=== PATIENT | female | born 1995 | race Caucasian/White ===

== ENCOUNTER 2020-07-24 05:29 | Inpatient (IN) | payer BC, SELFPAY ==
[2020-07-24] VITALS (39 sets, daily range): BP systolic 112–137; BP diastolic 52–80; PULSE 86–114; RESP 24–111; TEMP 36.8–39.6; O2SAT 75–99; BMI 37.2; BMI 36.2
--- NOTE | 2020-07-24 05:32 | EKG12_ITS ---
Test Reason : SOB Blood Pressure : / mmHG Vent. Rate : 112 BPM Atrial Rate : 112 BPM P-R Int : 150 ms QRS Dur : 076 ms QT Int : 320 ms P-R-T Axes : 018 008 032 degrees QTc Int : 436 ms Sinus tachycardia Nonspecific T wave abnormality Abnormal ECG Confirmed by WILLIAM LIAO MD ([id number]), digital editor MARIAN MCMILLAN ([id number]) on 07/28/2020 12:32:47 PM Referred By: KAILEE Confirmed By:WILLIAM LIAO MD
--- NOTE | 2020-07-24 05:34 | ED.VIS.DYS ---
HPI History of Present Illness Chief Complaint: Shortness of Breath Informant: patient and EMS Narrative Narrative: Patient presents with shortness of breath. This is been ongoing for 5 days. She tested positive for [facility] ago. She states that she has been getting worse over the past 5 days. She admits to a cough and shortness of breath. She denies any chest pain. No leg swelling. She denies any history of any lung issues in the past. She does not have an inhaler at home that she has been using. She denies any significant fevers. She is a non-smoker. EMS was called ramin and upon arrival at her residence they noted that she was in the low 80% region on room air. They administered supplemental oxygen and transferred her here. [facility] Medical History (Updated 07/24/20 @ 06:[address] Shaheed Monteiro MD) Anxiety Anxiety Home Medications alprazolam [Xanax] 0.25 mg PO DAILY 07/24/20 [History Last Taken Unknown] ondansetron 4 mg PO Q6H PRN 07/24/20 [History Last Taken Unknown] sertraline [Zoloft] 25 mg PO DAILY 07/24/20 [History Last Taken Unknown] Allergy/AdvReac Type Severity Reaction Status Date / Time amoxicillin AdvReac Upset Verified 07/24/20 05:51 Stomach no significant family history Social History Smoking Status: Never smoker ROS ROS ED Constitutional Constitutional ED: Denies chills or fever(s) Eyes Eyes: Denies blurry vision, change in vision or diplopia ENT ENT ED: Denies ear pain, rhinorrhea or sore throat Cardiovascular Cardiovascular: Denies chest pain or palpitations Respiratory/Chest Respiratory/Chest: Reports cough and dyspnea Gastrointestinal Gastrointestinal: Denies abdominal pain, diarrhea, nausea or vomiting Genitourinary Genitourinary ED: Denies dysuria, hematuria or urinary frequency Musculoskeletal Musculoskeletal: Denies back pain or neck pain Integumentary Denies change in pigmentation or rash Neurologic Neurologic: Denies headache(s), numbness or weakness Psychiatric Psychiatric: Denies anxiety or depression Endocrine Endocrinology: Denies polydipsia or polyuria EXAM Physical Exam Const Vital Signs: 07/24/20 05:31 07/24/20 05:35 07/24/20 05:46 Temperature 101.8 F H Temperature Source Oral Pulse Rate 114 H Respiratory Rate 27 H Respiratory Effort Short of Breath Respiratory Depth Normal Respiratory Pattern Tachypnea Blood Pressure 131/69 H Blood Pressure Mean 89 Pulse Ox 75 97 Oxygen Delivery Method Room Air Nasal Cannula Oxygen Flow Rate (L/min) 4 07/24/20 05:50 07/24/20 05:52 07/24/20 05:58 Temperature 101.8 F H 102.9 F H Temperature Source Oral Oral Pulse Rate 114 H Respiratory Rate 25 H Respiratory Effort Respiratory Depth Respiratory Pattern Blood Pressure 123/69 H Blood Pressure Mean 87 Pulse Ox 96 94 Oxygen Delivery Method Nasal Cannula Nasal Cannula Oxygen Flow Rate (L/min) 4 4 07/24/20 06:40 Temperature 103.3 F H Temperature Source Oral Pulse Rate Respiratory Rate 111 H Respiratory Effort Respiratory Depth Respiratory Pattern Blood Pressure 120/73 Blood Pressure Mean 88 Pulse Ox 92 Oxygen Delivery Method Nasal Cannula Oxygen Flow Rate (L/min) 4 Positive well nourished and well developed Constitutional Narrative: Mildly dyspneic General Appearance ED: well developed HEENT Reports moist mucous membranes normocephalic and atraumatic; Negative for tenderness Eyes PERRL and EOMs intact bilaterally Neck supple and no JVD Chest Wall Chest: Negative for tenderness Resp normal respiratory effort Resp Narrative: Rhonchi in the bases Effort and Inspection: Negative for respiratory distress Auscultation: rhonchi and diminished lung sounds Cardio regular rate and no murmurs Rate: tachycardic Rhythm: regular rhythm GI soft to palpation, non-tender and non-distended Palpation: soft Back/Spine no CVA tenderness and no thoracic nor lumbar tenderness Cervical Spine: Negative for cervical spine tenderness Extremity normal to inspection and full ROM General Extremety ED: Negative for edema or tenderness General Extremity: Negative for edema Neuro oriented x3, CN's II-XII intact bilaterally and no sensory deficits noted Sensorium / Orientation: awake and alert Motor Exam: strength 5/5 throughout Psych mental status grossly normal Skin no rashes or lesions noted Lesions: no lesions Rashes: no rashes MDM MDM MDM Narrative Medical decision making narrative: The patient was placed on supplemental oxygen. Her white blood cell count of 6.9. Electrolytes show potassium 3.4. Glucose is 125. Her D-dimer is 4.91. Lactate was 2.1. Chest x-ray shows bilateral infiltrates consistent with Covid. CTA of the chest is currently pending but upon my review I see no large pulmonary emboli in the proximal vessels. She does have lung changes consistent with Covid. She was given Decadron IV. She is having oxygen saturations around 92 to 93% on nasal cannula oxygen. Tylenol was given for her fever. I discussed with the hospitalist, Dr. New. Patient will be admitted to the ICU due to her diagnoses. Lab Data Attestation: I reviewed the patient's lab results. Labs: Laboratory Results - last 24 hr 07/24/20 07/24/20 07/24/20 05:50 05:50 05:50 WBC 6.9 RBC 5.02 Hgb 14.1 Hct 43.3 MCV 86.3 MCH 28.1 MCHC 32.6 RDW Std Deviation 45.2 H RDW Coeff of Brandon 14.2 Plt Count 200 MPV 9.7 Immature Gran % (Auto) 0.400 Neut % (Auto) 77.5 H Lymph % (Auto) 19.6 Ballard % (Auto) 2.4 Eos % (Auto) 0.0 Baso % (Auto) 0.1 Absolute Neuts (auto) 5.4 Absolute Lymphs (auto) 1.36 Nucleated RBC % 0 PT 12.1 INR 1.0 APTT 37.4 H D-Dimer Quant (PE/DVT) 4.91 H* Sodium 139 Potassium 3.4 L Chloride 105 Carbon Dioxide 28.0 Anion Gap 6 BUN 9 Creatinine 0.91 Estim Creat Clear Calc 97.82 Est GFR (MDRD) Af Amer 98 Est GFR (MDRD) Non-Af 81 BUN/Creatinine Ratio 9.9 L Glucose 125 H Lactic Acid Calcium 8.3 L Total Bilirubin 0.60 AST 72 H ALT 48 Alkaline Phosphatase 95 Total Protein 7.4 Albumin 3.1 L Globulin 4.3 H Albumin/Globulin Ratio 0.7 L 07/24/20 05:50 WBC RBC Hgb Hct MCV MCH MCHC RDW Std Deviation RDW Coeff of Brandon Plt Count MPV Immature Gran % (Auto) Neut % (Auto) Lymph % (Auto) Ballard % (Auto) Eos % (Auto) Baso % (Auto) Absolute Neuts (auto) Absolute Lymphs (auto) Nucleated RBC % PT INR APTT D-Dimer Quant (PE/DVT) Sodium Potassium Chloride Carbon Dioxide Anion Gap BUN Creatinine Estim Creat Clear Calc Est GFR (MDRD) Af Amer Est GFR (MDRD) Non-Af BUN/Creatinine Ratio Glucose Lactic Acid 2.1 H* Calcium Total Bilirubin AST ALT Alkaline Phosphatase Total Protein Albumin Globulin Albumin/Globulin Ratio Radiography Diagnostic Testing: Radiology Impression Chest X-Ray 07/24/20 06:03 IMPRESSION: Findings suspicious for multifocal pneumonia highly suggestive of Covid pneumonia. Electronically Signed: Eva Bourgeois MD at 6:22 EDT Tel , Service support , Critical Care Time Critical Care Time: Yes Critical care time (excluding procedures): 30-74 minutes, Discussing w/Patient &/or Family/Newspaper Photographer, Discussing w/Consultants and Performing Direct Patient Care at Bedside Discharge Plan Triage Chief Complaint: Shortness of Breath ED Provider: Shaheed Monteiro Dx/Rx/DC Orders Clinical Impression: COVID-19, Hypoxia, Severe sepsis Prescriptions: No Action alprazolam [Xanax] 0.25 mg Tablet 0.25 mg PO DAILY RF: 0 sertraline [Zoloft] 25 mg Tablet 25 mg PO DAILY RF: 0 ondansetron 4 mg Tablet,Disintegrating 4 mg PO Q6H PRN (Reason: Nausea) RF: 0 Primary Care Provider: Care Physician,No Primary Referrals: Care Physician,No Primary [Primary Care Provider] - Disposition Disposition: Acute Care [facility]
--- NOTE | 2020-07-24 05:38 | ED.RN ---
NO OLD EKGS IN MUSE
[2020-07-24] MEDS: dexAMETHasone 10 MG/ML Vial 6 MG IV (05:55)
[2020-07-24 06:00] LABS: Absolute Lymphocyte Count 1.36 X10^3/uL (0.83-4.51); Absolute Neutrophil Count 5.4 X10^3/uL (2.0-7.7); Basophil# 0.01 X10^3/uL; Basophil% 0.1 % (0-1); Hematocrit 43.3 % (37-47); Hemoglobin 14.1 g/dL (12.0-15.0); Lymphocyte # 1.36 X10^3/ul (0.83-4.51); Lymphocyte % 19.6 % (19-41); Mean Corp Hgb Conc 32.6 g/dL (32-36); Mean Corpuscular Hgb 28.1 pg (27.0-32.0); Mean Corpuscular Volume 86.3 fL (81-99); Mean Platelet Vol. 9.7 fl (6.2-12.0); Monocyte# 0.17 X10^3/uL; Monocyte% 2.4 % (0-10); NRBC Flagged by Analyzer 0 % (0-5); Neutrophil # 5.37 X10^3/uL (2.7-7.7); Neutrophil % 77.5 % (47-70); Platelet Count 200 K/mm3 (150-450); RBC Distribution Width CV 14.2 % (11.6-14.6); RBC Distribution Width SD 45.2 fl (35.1-43.9); Red Blood Count 5.02 M/mm3 (4.2-5.4); White Blood Count 6.9 K/mm3 (4.4-11.0)
[2020-07-24] MEDS: Acetaminophen 500 MG Tablet 1000 MG PO (06:00)
--- NOTE | 2020-07-24 06:03 | RAD_ITS ---
STUDY: X-RAY CHEST REASON FOR EXAM: Female, 24 years old. Cough and sob, covid +, pt was having difficulties taking in deep inspiration for x-ray. TECHNIQUE: Single AP portable view x2 of the chest. COMPARISON: None. FINDINGS: There are multifocal patchy groundglass opacities with predominance in the left lung. There is no demonstrated pleural abnormality. Normal size heart. Normal mediastinum and joel. Normal visualized pulmonary arteries. Normal visualized aortic arch and descending thoracic aorta. Normal visualized thoracic spine. Normal visualized ribs, clavicles, and shoulders. There is no demonstrated abnormality of the visualized soft tissue structures of the upper abdomen. RAD/Chest 1 View (Portable) IMPRESSION: Findings suspicious for multifocal pneumonia highly suggestive of Covid pneumonia. Electronically Signed: Eva Bourgeois MD at 6:22 EDT Tel , Service support ,
[2020-07-24 06:13] LABS: Partial Thromboplast Time 37.4 Seconds (24.1-36.2)
[2020-07-24 06:17] LABS: ALB/GLOB Ratio 0.7 RATIO (0.9-2.4); AST(SGOT) 72 U/L (15-37); Alanine Aminotransfer ALT/SGPT 48 U/L (13-56); Albumin, Serum 3.1 g/dL (3.2-5.0); Alkaline Phosphatase 95 U/L (45-117); Anion Gap 6 (5-15); BUN 9 mg/dL (7-18); BUN/Creat Ratio 9.9 RATIO (10-20); Calcium,Total 8.3 mg/dL (8.5-10.1); Chloride 105 mmol/L (98-107); Creatinine, Serum 0.91 mg/dL (0.55-1.02); EST Glomerular Filtration Rate 81 mL/min (>60); Est Glom Filt Rate - Afr Amer 98 mL/min (>60); Estimated Creatinine Clearance 97.82 ml/min; Globulin 4.3 g/dL (2.2-4.2); Glucose 125 mg/dL (74-106); Potassium 3.4 mmol/L (3.5-5.1); Protein, Total 7.4 g/dL (6.4-8.2); Sodium Level 139 mmol/L (136-145)
[2020-07-24 06:30] LABS: Lactic Acid 2.1 mmol/L (0.4-1.9)
[2020-07-24 06:32] LABS: Prothrombin Time (Protime)PT. 12.1 SECONDS (11.7-14.9)
[2020-07-24 06:34] LABS: D-Dimer Quantitative (DVT/PE) 4.91 FEU/ug/m (0.27-0.49)
--- NOTE | 2020-07-24 06:34 | CT_ITS ---
STUDY: CTA CHEST REASON FOR EXAM: Female, 24 years old. elevated d dimer RADIATION DOSAGE (If Supplied By Facility): CTDIvol = ( 11.42 ) mGy, DLP = ( 386.35 ) mGycm TECHNIQUE: The examination was performed with the intravenous administration of IV 100mL Isovue-370. Post-processing of the angiographic images was performed, with multiplanar reformation and 3D reconstruction. Individualized dose optimization techniques were used for this CT. COMPARISON: July 24, 2020 chest x-ray FINDINGS: There is limited enhancement of the main pulmonary artery and right and left pulmonary arteries. There is limited enhancement of the bilateral peripheral pulmonary arteries. There are no large centrally located clots. There is a limited visualization of the pulmonary vessels to the multifocal infiltrates and artifact. Normal thoracic aorta and visualized great vessels. There is no demonstrated aortic dissection. There is borderline cardiac enlargement. There are a few reactive appearing mediastinal lymph nodes. Normal hilar regions. Normal visualized trachea and bronchi. The lungs are well expanded. There are multifocal areas of consolidation with predominance in the left upper lobe and left lower lobe right lower lobe. There are patches of consolidation groundglass opacity in the right upper lobe. Normal pleura. Normal chest wall structures. Normal osseous structures. There is [id number] splenomegaly. CT/CTA Chest W/WO Contrast IMPRESSION: No visualized pulmonary embolism. Multifocal pneumonia highly suspicious for Covid pneumonia. Mild to moderate splenomegaly. Electronically Signed: Eva Bourgeois MD at 7:12 EDT Tel , Service support ,
--- NOTE | 2020-07-24 06:46 | PCM.HP.STD ---
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 She denies any recent associated chest pain. Patient denies any recent Covid contacts. She denies any of her students having been ill. She reports having signed up for vaccine but has yet to get it but is still interested in doing so. Work-up in the ED included T 103.3, heart rate 2103.3, heart rate 114, BP 131/69, respiratory rate 27, initially 75% on room air with improvement to 97% on 4 L nasal cannula, CBC with WBC 6.9, hemoglobin 14.1, platelet 200 without marked shift, coags w/ PTT 37.4, D-dimer 4.91, CMP w/ K 3.4, glucose 125, LA 2.1, AST/ALT 72/48, CXR with multifocal PNA consistent with COVID PNA, CPTA no visualized pulmonary emboli with multifocal pneumonia suspicious for Covid pneumonia with concurrent mild to moderate splenomegaly, EKG w/ with ST without acute evidence of ischemia. In the ED patient administered decadron 6 mg IV x 1.6. [facility] Medical History (Updated 07/24/20 @ 14:[address] Odette New MD) Anxiety and depression Obesity (BMI 30-39.9) Home Medications alprazolam [Xanax] 0.25 mg PO DAILY 07/24/20 [History Last Taken Unknown] ondansetron 4 mg PO Q6H PRN 07/24/20 [History Last Taken Unknown] sertraline [Zoloft] 25 mg PO DAILY 07/24/20 [History Last Taken Unknown] Allergy/AdvReac Type Severity Reaction Status Date / Time amoxicillin AdvReac Upset Verified 07/24/20 05:51 Stomach Family History (Updated 07/24/20 @ 14:[address] Odette New MD) Mother No problems noted. Father No problems noted. other (Patient denies any marked maternal or paternal family history including heart disease, diabetes, cancer, strokes.) unable to obtain (Patient with a history of sinus surgery as well as left ankle surgery.) Social History (Updated 07/24/20 @ 14:[address] 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 ROS ROS Narrative Admission Review of Systems: CONSTITUTIONAL: No weight loss, + fever, chills, weakness or fatigue. HEENT: + Altered sense of taste and smell, sore throat, congestion. Eyes: No visual loss, blurred vision, double vision or yellow sclerae. Ears, Nose, Throat: No hearing loss. SKIN: No rash or itching, lesions, wounds. CARDIOVASCULAR: No chest pain, chest pressure or chest discomfort, palpitations, edema, orthopnea, syncopal events. RESPIRATORY: + shortness of breath, cough, No sputum, wheezing, hemoptysis. GASTROINTESTINAL: + anorexia, nausea, vomiting, diarrhea, abdominal pain, No melena, BRBPR. GENITOURINARY: No dysuria, frequency, urgency or retention. NEUROLOGICAL:+ headache, No dizziness, syncope, paralysis, ataxia, numbness or tingling in the extremities, focal weakness, change in bowel or bladder control, seizure. MUSCULOSKELETAL: + muscle, back pain, joint pain or stiffness. HEMATOLOGIC: No anemia, bleeding or bruising. LYMPHATICS: No enlarged nodes. No history of splenectomy. PSYCHIATRIC: + history of depression or anxiety. ENDOCRINOLOGIC: No reports of sweating, cold or heat intolerance. No polyuria or polydipsia. ALLERGIES: No history of asthma, hives, eczema or rhinitis. Vital Signs Vital Signs Vital Signs: 07/24/20 05:31 07/24/20 05:35 07/24/20 05:46 Temperature 101.8 F H Temperature Source Oral Pulse Rate 114 H Respiratory Rate 27 H Respiratory Effort Short of Breath Respiratory Depth Normal Respiratory Pattern Tachypnea Blood Pressure 131/69 H Blood Pressure Mean 89 Pulse Ox 75 97 Oxygen Delivery Method Room Air Nasal Cannula Oxygen Flow Rate (L/min) 4 07/24/20 05:50 07/24/20 05:52 07/24/20 05:58 Temperature 101.8 F H 102.9 F H Temperature Source Oral Oral Pulse Rate 114 H Respiratory Rate 25 H Respiratory Effort Respiratory Depth Respiratory Pattern Blood Pressure 123/69 H Blood Pressure Mean 87 Pulse Ox 96 94 Oxygen Delivery Method Nasal Cannula Nasal Cannula Oxygen Flow Rate (L/min) 4 4 07/24/20 06:40 Temperature 103.3 F H Temperature Source Oral Pulse Rate Respiratory Rate 111 H Respiratory Effort Respiratory Depth Respiratory Pattern Blood Pressure 120/73 Blood Pressure Mean 88 Pulse Ox 92 Oxygen Delivery Method Nasal Cannula Oxygen Flow Rate (L/min) 4 Physical Exam Narrative Physical Examination: General: awake, alert, oriented x 3 and cooperative, seated upright in the ED bed, fatigued and ill-appearing, increased work of breathing accessory muscle usage noted. Skin: normal color, turgor, no icterus, cyanosis. HEENT: AT/NC, EOMI, PERRLA, dry MM, no carotid bruits or JVD noted. Lungs: Diffusely diminished, increased work of breathing and accessory muscle usage noted, no rales, ronchi or wheezing. Heart: Tachycardic with regular rhythm; no gallop, rub audible. Abdomen: soft, obese, NTTP but noted mild generalized abdominal discomfort, ND, mildly hyperactive BS, no HSM. Extremities: no cyanosis, clubbing, or edema. Neurological: patient awake, alert, oriented as noted; cognitive function intact; pupils equally reactive to light and accomodation; cranial nerves II-XII grossly normal, moving all 4 extremities, no focal deficits, strength severely globally decreased secondary to acute presentation. Psychiatric: affect appears fatigued, ill appearing, evidence respiratory distress, no acute evidence of depressive or anxiety feelings. Lab / Micro Data Result Diagrams: 07/24/20 05:50 07/24/20 05:50 Labs: Laboratory Results - last 24 hr 07/24/20 07/24/20 07/24/20 05:50 05:50 05:50 WBC 6.9 RBC 5.02 Hgb 14.1 Hct 43.3 MCV 86.3 MCH 28.1 MCHC 32.6 RDW Std Deviation 45.2 H RDW Coeff of Brandon 14.2 Plt Count 200 MPV 9.7 Immature Gran % (Auto) 0.400 Neut % (Auto) 77.5 H Lymph % (Auto) 19.6 Dillon % (Auto) 2.4 Eos % (Auto) 0.0 Baso % (Auto) 0.1 Absolute Neuts (auto) 5.4 Absolute Lymphs (auto) 1.36 Nucleated RBC % 0 PT 12.1 INR 1.0 APTT 37.4 H D-Dimer Quant (PE/DVT) 4.91 H* Sodium 139 Potassium 3.4 L Chloride 105 Carbon Dioxide 28.0 Anion Gap 6 BUN 9 Creatinine 0.91 Estim Creat Clear Calc 97.82 Est GFR (MDRD) Af Amer 98 Est GFR (MDRD) Non-Af 81 BUN/Creatinine Ratio 9.9 L Glucose 125 H Lactic Acid Calcium 8.3 L Total Bilirubin 0.60 AST 72 H ALT 48 Alkaline Phosphatase 95 Total Protein 7.4 Albumin 3.1 L Globulin 4.3 H Albumin/Globulin Ratio 0.7 L 07/24/20 05:50 WBC RBC Hgb Hct MCV MCH MCHC RDW Std Deviation RDW Coeff of Brandon Plt Count MPV Immature Gran % (Auto) Neut % (Auto) Lymph % (Auto) Dillon % (Auto) Eos % (Auto) Baso % (Auto) Absolute Neuts (auto) Absolute Lymphs (auto) Nucleated RBC % PT INR APTT D-Dimer Quant (PE/DVT) Sodium Potassium Chloride Carbon Dioxide Anion Gap BUN Creatinine Estim Creat Clear Calc Est GFR (MDRD) Af Amer Est GFR (MDRD) Non-Af BUN/Creatinine Ratio Glucose Lactic Acid 2.1 H* Calcium Total Bilirubin AST ALT Alkaline Phosphatase Total Protein Albumin Globulin Albumin/Globulin Ratio Radiology Impression Chest X-Ray 07/24/20 06:03 IMPRESSION: Findings suspicious for multifocal pneumonia highly suggestive of Covid pneumonia. 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 1. Acute Severe Sepsis secondary to Acute Hypoxic Respiratory Failure secondary to Acute Bilateral Pneumonia secondary to Acute Viral Syndrome, COVID-19: Will admit to the ICU given severe sepsis status, maintain on COVID precautions, will maintain on oxygen with wean as tolerated to room air, PRN albuterol, HOB, IS parameters w/ pending sputum cultures, respiratory viral panel and urine antigens, will obtain procalcitonin, CRP, CPK, Ferritin, LDH, trop and BNP, continue supportive care including q 2 hour turning including prone given no prone bed availability and judicious hydration, closely monitor for worsening status for ARDS and multiorgan failure, will consult Infectious disease, will initiate and continue IV decadron x 10 doses, given presentation will also initiate IV remdesivir but defer to discretion of Infectious disease. Pulmonary/CC also consulted given ICU status admission per facility protocol. T+S requested. 2. Incidentally noted splenomegaly: CT with noted evidence splenomegaly, likely related with #1, may need to implement precautions at her discharge although no contact sports history. 3. Hypokalemia: Admission K+ 3.4, magnesium level obtained and noted to be 2.1, supplementation given, repeat level in AM. 4. Hyperglycemia: Admission glucose 125, possibly stress response, will continue to monitor and if remains elevated will obtain hemoglobin A1c. 5. Elevated LFTs: Likely secondary to #1, admission AST/ALT 72/48, will repeat CMP in AM. 6. Anxiety and Depression: Continue home sertraline and xanax regimen cautiously. 7. DVT Prophylaxis: SCDs, lovenox. Visit Charges Inpatient E&M: 96209 Init Hosp L3
[2020-07-24 07:28] LABS: BNP,B-Type NATRIURETIC PEPTIDE < 2.0 pg/mL (0-100)
[2020-07-24 07:30] LABS: Alkaline Phosphatase 96 U/L (45-117); Ferritin 304 ng/mL (8-252); LDH 398 U/L (84-246); Magnesium 2.1 mg/dL (1.6-2.6)
[2020-07-24 07:50] LABS: Procalcitonin 0.12 ng/mL (0.00-0.09)
[2020-07-24] MEDS: Sertraline 50 MG Tablet 25 MG PO (08:25)
[2020-07-24] MEDS: Enoxaparin 30 MG/0.3 ML Syringe SC ×2 (08:25→20:11)
[2020-07-24] MEDS: Famotidine 20 MG Tablet PO ×2 (08:25→20:11)
[2020-07-24 09:59] LABS: Reflex Lactate? Y
--- NOTE | 2020-07-24 10:24 | CASEMGMT ---
BROOKS VILLAR assessment: Phone interview with patient for initial transition planning/care coordination assessment. BROOKS VILLAR introduced self and role at [facility], pt voices understanding and consents to assessment. Pt is A/Ox4 and answers all questions appropriately. Pt states tested COVID + on 07/20/20 at [facility]. Care providers, pharmacy, and demographics verified. Presentation: COVID +, SOB Admitting dx: Severe sepsis, COVID pna, hypoxia PCP: Pt does not have PCP and declines list at this time. Specialists: Pt states no current specialists. Preferred Pharmacy: [facility] Insurance: [place] Living Will/HPOA: Pt does not have LW/HPOA and declines info. LNOK: Zahida Calderon, mother Living Arrangements: Pt states lives alone in apartment and states no concerns at home. Pt is independent with ADL's. Transportation: Pt states drives self and states no transportation concerns. DME/HHC: Pt states no current DME or need for any. Pt states no hx of HHC/SNF. Pt states no concerns with going home at time of discharge. 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 Pt states does not smoke cigarettes but does occasionally drink ETOH. Pt states no further concerns/needs. Pt states no concerns with quarantining and getting groceries/meds once discharged home. CM to follow for any further discharge planning/needs. Advised pt to ask for CM if any further questions/concerns/needs arise, voices understanding. Pt Goal: Home Plan[place]
[2020-07-24] MEDS: 0.9% Normal Saline 1,000 ML 125 ML IV (10:36)
[2020-07-24] MEDS: Potassium Chloride Oral Tablet 20 MEQ 40 MEQ PO (10:36)
[2020-07-24 10:49] LABS: Lactic Acid 1.9 mmol/L (0.4-1.9)
[2020-07-24] MEDS: Albuterol Sulfate 8 gm Inhaler (60 puffs) INHALATION ×2 (13:11→18:21)
--- NOTE | 2020-07-24 14:07 | CON.PCM.CC_ITS ---
Assessment & Plan Assessment/Plan (1) Acute respiratory failure with hypoxia: (2) COVID-19: PLAN: RECOMMENDATIONS: 1. Wean supplemental oxygen to maintain saturations at or above 90%. 2. Continue remdesivir. Monitor liver and renal function accordingly. 3. Continue Decadron to complete 10-day treatment course. 4. Continue twice daily Lovenox. 5. Continue baseline anxiolytics. 6. Encourage incentive spirometer use and mobilize patient as tolerated. IMPRESSIONS: 1. Acute hypoxemic respiratory failure secondary to COVID-19 pneumonia The patient was admitted to the hospital with an approximate 6-day course of Covid symptoms having tested positive at a local [facility] pharmacy. CTA chest revealed significant bilateral consolidative and groundglass changes without evidence for PE. The patient was subsequently placed on remdesivir and Decadr on. We will continue to monitor liver and renal function accordingly. Continue to wean oxygen to maintain saturations at or above 90%. Continue Lovenox twice daily as ordered. 2. Hypokalemia Electrolyte repletion as ordered. Recheck levels in the morning. 3. Anxiety/depression Complicates care, management, recovery and prognosis. Continue home medications as indicated. This note was generated with [employer] dictation software. It may contain incorrect words, spelling, and punctuation that were not noted in checking the note before signing. HPI Consult Data Date of Consult: 07/25/20 HPI Narrative Reason for Consultation: Acute hypoxemic respiratory failure secondary to COVID- 19 pneumonia HPI Narrative: The patient is a 24-year-old female, with a history as outlined below, who presented to the emergency department on July 24 with complaints of generalized malaise, fatigue, cough and shortness of breath. Her symptoms have been present now for approximately 5 to 6 days. The patient has yet to be vaccinated for coronavirus. She did recently test positive for Covid through [facility] pharmacy. On presentation to the emergency department, the patient was noted to be febrile, tachycardic and tachypneic. She was additionally noted to be hypoxemic, requiring 4 L/min of oxygen. Laboratory evaluation revealed a normal white blood cell count. D-dimer was elevated at 4.9. Potassium was low at 3.4. Lactate was elevated to 2.1. Procalcitonin was noted to be 0.12. CTA chest showed no evidence for pulmonary embolism. Bilateral airspace consolidation and patchy groundglass infiltrates were noted. The patient was started on remdesivir and Decadron. She was subsequently admitted to the medical intensive care unit for further management. [facility] Medical History Anxiety and depression Obesity (BMI 30-39.9) Home Medications alprazolam [Xanax] 0.25 mg PO DAILY 07/24/20 [History Last Taken Unknown] ondansetron 4 mg PO Q6H PRN 07/24/20 [History Last Taken Unknown] sertraline [Zoloft] 25 mg PO DAILY 07/24/20 [History Last Taken Unknown] Allergy/AdvReac Type Severity Reaction Status Date / Time amoxicillin AdvReac Upset Verified 07/24/20 05:51 Stomach Family History (Updated 07/24/20 @ 14:[address] Odette New MD) Mother No problems noted. Father No problems noted. Social History (Updated 07/24/20 @ 14:[address] 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 ROS Constitutional Constitutional: Reports chills, fatigue, fever(s), headache(s) and malaise Eyes Eyes: Denies blurry vision or change in vision ENT HEENT: Reports headache(s); Denies dizziness or dysphagia Cardiovascular Cardiovascular: Reports dyspnea; Denies chest pain or dizziness Respiratory/Chest Respiratory/Chest: Reports cough and dyspnea; Denies chest tightness Gastrointestinal Gastrointestinal: Denies abdominal pain Genitourinary Genitourinary: Denies difficulty urinating or dysuria Musculoskeletal Musculoskeletal: Denies arthralgias or back pain Integumentary Integumentary: Denies lesions, rash or skin ulcer Neurologic Neurologic: Denies abnormal gait Psychiatric Psychiatric: Reports anxiety Endocrine Endocrinology: Reports fatigue; Denies polydipsia or polyuria Hematologic/Lymphatic Hematologic/Lymphatic: Denies easy bleeding or easy bruising Physical Exam Const alert and oriented x3 General Appearance: cooperative and well developed HEENT normocephalic, head/scalp atraumatic and moist oral mucous membranes Eyes PERRL and EOMs intact bilaterally Chest inspection of chest normal Resp Effort and Inspection: tachypneic Auscultation: diminished lung sounds; Negative for rales, rhonchi or wheezes Cardio regular rate and regular rhythm GI normal to inspection, nondistended, normoactive bowel sounds Extremity no clubbing, cyanosis or edema Skin no rashes or lesions noted Neuro oriented x3, CN's II-XII intact bilaterally, moves all extremities and no focal motor deficits Psych cooperative and affect normal Appearance: well kempt Lab / Micro Data Result Diagrams: 07/25/20 03:40 07/25/20 03:40 Labs: Laboratory Results - last 24 hr 07/24/20 07/24/20 07/24/20 05:50 05:50 05:50 WBC 6.9 RBC 5.02 Hgb 14.1 Hct 43.3 MCV 86.3 MCH 28.1 MCHC 32.6 RDW Std Deviation 45.2 H RDW Coeff of Brandon 14.2 Plt Count 200 MPV 9.7 Immature Gran % (Auto) 0.400 Neut % (Auto) 77.5 H Lymph % (Auto) 19.6 [facility] % (Auto) 2.4 Eos % (Auto) 0.0 Baso % (Auto) 0.1 Absolute Neuts (auto) 5.4 Absolute Lymphs (auto) 1.36 Nucleated RBC % 0 PT 12.1 INR 1.0 APTT 37.4 H D-Dimer Quant (PE/DVT) 4.91 H* Sodium 139 Potassium 3.4 L Chloride 105 Carbon Dioxide 28.0 Anion Gap 6 BUN 9 Creatinine 0.91 Estim Creat Clear Calc 97.82 Est GFR (MDRD) Af Amer 98 Est GFR (MDRD) Non-Af 81 BUN/Creatinine Ratio 9.9 L Glucose 125 H Lactic Acid Calcium 8.3 L Magnesium Ferritin Total Bilirubin 0.60 AST 72 H ALT 48 Alkaline Phosphatase 95 Lactate Dehydrogenase Troponin I C-React Prot Ext Range B-Natriuretic Peptide Total Protein 7.4 Albumin 3.1 L Globulin 4.3 H Albumin/Globulin Ratio 0.7 L Procalcitonin 07/24/20 07/24/20 07/24/20 05:50 05:50 05:50 WBC RBC Hgb Hct MCV MCH MCHC RDW Std Deviation RDW Coeff of [place] Plt Count MPV Immature Gran % (Auto) Neut % (Auto) Lymph % (Auto) [facility] % (Auto) Eos % (Auto) Baso % (Auto) Absolute Neuts (auto) Absolute Lymphs (auto) Nucleated RBC % PT INR APTT D-Dimer Quant (PE/DVT) Sodium Potassium Chloride Carbon Dioxide Anion Gap BUN Creatinine Estim Creat Clear Calc Est GFR (MDRD) Af Amer Est GFR (MDRD) Non-Af BUN/Creatinine Ratio Glucose Lactic Acid 2.1 H* Calcium Magnesium 2.1 Ferritin 304 H Total Bilirubin AST ALT Alkaline Phosphatase 96 Lactate Dehydrogenase 398 H Troponin I < 0.015 C-React Prot Ext Range 87.10 H B-Natriuretic Peptide < 2.0 Total Protein Albumin Globulin Albumin/Globulin Ratio Procalcitonin 07/24/20 07/24/20 05:50 10:10 WBC RBC Hgb Hct MCV MCH MCHC RDW Std Deviation RDW Coeff of [place] Plt Count MPV Immature Gran % (Auto) Neut % (Auto) Lymph % (Auto) [place] % (Auto) Eos % (Auto) Baso % (Auto) Absolute Neuts (auto) Absolute Lymphs (auto) Nucleated RBC % PT INR APTT D-Dimer Quant (PE/DVT) Sodium Potassium Chloride Carbon Dioxide Anion Gap BUN Creatinine Estim Creat Clear Calc Est GFR (MDRD) Af Amer Est GFR (MDRD) Non-Af BUN/Creatinine Ratio Glucose Lactic Acid 1.9 Calcium Magnesium Ferritin Total Bilirubin AST ALT Alkaline Phosphatase Lactate Dehydrogenase Troponin I C-React Prot Ext Range B-Natriuretic Peptide Total Protein Albumin Globulin Albumin/Globulin Ratio Procalcitonin 0.12 H Micro: Microbiology 07/24/20 07:55 Respiratory Panel (PCR) - Final Mucosa - Nose Radiology Impression Chest X-Ray 07/24/20 06:03 IMPRESSION: Findings suspicious for multifocal pneumonia highly suggestive of Covid pneumonia. Electronically Signed: Eva Bourgeois MD at 6:22 EDT Tel , Service support , Chest CTA 07/24/20 06:34 IMPRESSION: No visualized pulmonary embolism. Multifocal pneumonia highly suspicious for Covid pneumonia. Mild to moderate splenomegaly. Electronically Signed: Eva Bourgeois MD at 7:12 EDT Tel , Service support , Charges/Coding Visit Charges Inpatient E&M: 10329 Init Hosp L3
[2020-07-24] MEDS: Acetaminophen 325 MG Tablet 650 MG PO ×2 (15:48→20:11)
[2020-07-24] MEDS: guaiFENesin 10 ML UDC (200MG/10ML) PO ×2 (15:48→20:14)
[2020-07-24] MEDS: INHALER, ASSIST DEVICES 1 EACH SPACER INHALATION (15:51)
--- NOTE | 2020-07-24 18:49 | NURSING ---
up to bathroom and back to bed- spo2 of 80% is once pt was back in bed. in 5 minutes of recovery time nasal cannula up to 7L and spo2 89%.
--- NOTE | 2020-07-24 18:56 | NURSING ---
high flow oxygen tubing applied. increased to 8L nasal cannula and encouraged/educated on prone/stomach positioning while laying in bed. pt nods head and verbalizes understanding, continues to lay on on her back with hob elevated. direct instruction and cueing/guidance for positioning change.
--- NOTE | 2020-07-24 19:21 | PCM.CONS.GEN ---
Assessment & Plan Assessment/Plan (1) COVID-19: PLAN: covid with hypoxia - sx started 07/19, not previously vaccinated. On dex, changed to po. Cont remdesivir. On lovenox 30mg bid. D-dimer elevated, CT showed no PE. Quarantine for 20 days until 08/08. Recommend covid shot once she is out of quarantine. Will follow, thank you (2) Acute respiratory failure with hypoxia: HPI Consult Data Date of Consult: 07/24/20 HPI Narrative HPI Narrative: SHANA MARQUEZ, is a 24 F who presented with sx starting 07/19 with progressive headache, fever, chills, sore throat, change in taste/smell, cough, SOB, chest soreness, n/v/d. No myalgias. Lives alone, no sick contacts. Has not gotten covid shot yet. Came to ED, hypoxic, admitted on dex and remdesivir. Not feeling much better yet. Full ROS performed and neg except as noted above. [facility] Medical History Anxiety and depression Obesity (BMI 30-39.9) Home Medications alprazolam [Xanax] 0.25 mg PO DAILY 07/24/20 [History Last Taken Unknown] ondansetron 4 mg PO Q6H PRN 07/24/20 [History Last Taken Unknown] sertraline [Zoloft] 25 mg PO DAILY 07/24/20 [History Last Taken Unknown] Allergy/AdvReac Type Severity Reaction Status Date / Time amoxicillin AdvReac Upset Verified 07/24/20 05:51 Stomach Family History (Updated 07/24/20 @ 14:[address] Odette New MD) Mother No problems noted. Father No problems noted. Social History (Updated 07/24/20 @ 14:[address] 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 Physical Exam Const alert, oriented x3 and no apparent distress General Appearance: cooperative HEENT normocephalic and head/scalp atraumatic Eyes PERRL and EOMs intact bilaterally Neck supple and No nodes Resp Auscultation: diminished lung sounds Cardio regular rate and regular rhythm GI normal to inspection, nondistended, normoactive bowel sounds Extremity no clubbing, cyanosis or edema Skin no rashes or lesions noted Neuro CN's II-XII intact bilaterally Lab / Micro Data Result Diagrams: 07/24/20 05:50 07/24/20 05:50 Labs: Laboratory Results - last 24 hr 07/24/20 07/24/20 07/24/20 05:50 05:50 05:50 WBC 6.9 RBC 5.02 Hgb 14.1 Hct 43.3 MCV 86.3 MCH 28.1 MCHC 32.6 RDW Std Deviation 45.2 H RDW Coeff of Brandon 14.2 Plt Count 200 MPV 9.7 Immature Gran % (Auto) 0.400 Neut % (Auto) 77.5 H Lymph % (Auto) 19.6 Terry % (Auto) 2.4 Eos % (Auto) 0.0 Baso % (Auto) 0.1 Absolute Neuts (auto) 5.4 Absolute Lymphs (auto) 1.36 Nucleated RBC % 0 PT 12.1 INR 1.0 APTT 37.4 H D-Dimer Quant (PE/DVT) 4.91 H* Sodium 139 Potassium 3.4 L Chloride 105 Carbon Dioxide 28.0 Anion Gap 6 BUN 9 Creatinine 0.91 Estim Creat Clear Calc 97.82 Est GFR (MDRD) Af Amer 98 Est GFR (MDRD) Non-Af 81 BUN/Creatinine Ratio 9.9 L Glucose 125 H Lactic Acid Calcium 8.3 L Magnesium Ferritin Total Bilirubin 0.60 AST 72 H ALT 48 Alkaline Phosphatase 95 Lactate Dehydrogenase Troponin I C-React Prot Ext Range B-Natriuretic Peptide Total Protein 7.4 Albumin 3.1 L Globulin 4.3 H Albumin/Globulin Ratio 0.7 L Procalcitonin 07/24/20 07/24/20 07/24/20 05:50 05:50 05:50 WBC RBC Hgb Hct MCV MCH MCHC RDW Std Deviation RDW Coeff of Brandon Plt Count MPV Immature Gran % (Auto) Neut % (Auto) Lymph % (Auto) Terry % (Auto) Eos % (Auto) Baso % (Auto) Absolute Neuts (auto) Absolute Lymphs (auto) Nucleated RBC % PT INR APTT D-Dimer Quant (PE/DVT) Sodium Potassium Chloride Carbon Dioxide Anion Gap BUN Creatinine Estim Creat Clear Calc Est GFR (MDRD) Af Amer Est GFR (MDRD) Non-Af BUN/Creatinine Ratio Glucose Lactic Acid 2.1 H* Calcium Magnesium 2.1 Ferritin 304 H Total Bilirubin AST ALT Alkaline Phosphatase 96 Lactate Dehydrogenase 398 H Troponin I < 0.015 C-React Prot Ext Range 87.10 H B-Natriuretic Peptide < 2.0 Total Protein Albumin Globulin Albumin/Globulin Ratio Procalcitonin 07/24/20 07/24/20 05:50 10:10 WBC RBC Hgb Hct MCV MCH MCHC RDW Std Deviation RDW Coeff of Brandon Plt Count MPV Immature Gran % (Auto) Neut % (Auto) Lymph % (Auto) Terry % (Auto) Eos % (Auto) Baso % (Auto) Absolute Neuts (auto) Absolute Lymphs (auto) Nucleated RBC % PT INR APTT D-Dimer Quant (PE/DVT) Sodium Potassium Chloride Carbon Dioxide Anion Gap BUN Creatinine Estim Creat Clear Calc Est GFR (MDRD) Af Amer Est GFR (MDRD) Non-Af BUN/Creatinine Ratio Glucose Lactic Acid 1.9 Calcium Magnesium Ferritin Total Bilirubin AST ALT Alkaline Phosphatase Lactate Dehydrogenase Troponin I C-React Prot Ext Range B-Natriuretic Peptide Total Protein Albumin Globulin Albumin/Globulin Ratio Procalcitonin 0.12 H Micro: Microbiology 07/24/20 15:00 Legionella Antigen - Final Urine, Clean Catch Streptococcus pneumoniae Antigen (M - Final 07/24/20 07:55 Respiratory Panel (PCR) - Final Mucosa - Nose Radiology Impression Chest X-Ray 07/24/20 06:03 IMPRESSION: Findings suspicious for multifocal pneumonia highly suggestive of Covid pneumonia. Electronically Signed: Eva Bourgeois MD at 6:22 EDT Tel , Service support , Chest CTA 07/24/20 06:34 IMPRESSION: No visualized pulmonary embolism. Multifocal pneumonia highly suspicious for Covid pneumonia. Mild to moderate splenomegaly. Electronically Signed: Eva Bourgeois MD at 7:12 EDT Tel , Service support ,
[2020-07-24] MEDS: ALPRAZolam 0.25 MG Tablet PO (20:11)
[2020-07-25] VITALS (31 sets, daily range): BP systolic 97–135; BP diastolic 46–76; PULSE 73–112; RESP 24–39; TEMP 36.9–37.5; O2SAT 90–96
[2020-07-25] MEDS: Ondansetron 4 MG/2 ML Vial IV ×2 (00:20→10:35)
[2020-07-25] MEDS: 0.9% Saline Lock 10 ML Syringe IV (00:20)
[2020-07-25 03:51] LABS: Absolute Lymphocyte Count 0.76 X10^3/uL (0.83-4.51); Absolute Neutrophil Count 8.5 X10^3/uL (2.0-7.7); Hematocrit 38.1 % (37-47); Hemoglobin 12.5 g/dL (12.0-15.0); Lymphocyte # 0.76 X10^3/ul (0.83-4.51); Mean Corp Hgb Conc 32.8 g/dL (32-36); Mean Corpuscular Hgb 28.2 pg (27.0-32.0); Mean Corpuscular Volume 85.8 fL (81-99); Mean Platelet Vol. 10.1 fl (6.2-12.0); Monocyte# 0.23 X10^3/uL; Monocyte% 2.4 % (0-10); NRBC Flagged by Analyzer 0 % (0-5); Neutrophil # 8.51 X10^3/uL (2.7-7.7); Neutrophil % 89.3 % (47-70); Platelet Count 217 K/mm3 (150-450); RBC Distribution Width CV 14.1 % (11.6-14.6); Red Blood Count 4.44 M/mm3 (4.2-5.4); White Blood Count 9.5 K/mm3 (4.4-11.0)
[2020-07-25 04:10] LABS: ALB/GLOB Ratio 0.6 RATIO (0.9-2.4); AST(SGOT) 51 U/L (15-37); Alanine Aminotransfer ALT/SGPT 38 U/L (13-56); Albumin, Serum 2.6 g/dL (3.2-5.0); Alkaline Phosphatase 80 U/L (45-117); Anion Gap 7 (5-15); BUN 9 mg/dL (7-18); BUN/Creat Ratio 13.2 RATIO (10-20); Calcium,Total 8.2 mg/dL (8.5-10.1); Chloride 108 mmol/L (98-107); Creatinine, Serum 0.68 mg/dL (0.55-1.02); EST Glomerular Filtration Rate 114 mL/min (>60); Est Glom Filt Rate - Afr Amer 137 mL/min (>60); Estimated Creatinine Clearance 130.91 ml/min; Glucose 123 mg/dL (74-106); Potassium 3.9 mmol/L (3.5-5.1); Protein, Total 6.6 g/dL (6.4-8.2); Sodium Level 142 mmol/L (136-145)
--- NOTE | 2020-07-25 06:20 | PCM.PN.HOSP ---
Subjective Subjective: Patient overnight with increased oxygenation needs transition to air Vo with requirements up to 80%. Patient also with significant anxiety and reticent for deep inspiratory effort and I-S usage per discussion with staff and patient. Patient continues on remdesivir and Decadron with pulmonary/critical care as well as infectious disease consulted. Spoke at length about importance of conservative measures including aggressive I-S usage and deep inspiratory effort which patient understands. Discussed at length patient anxiety and she is amenable to as needed agents. She notes specifically discomfort with deep inspiratory effort with pleuritic pain secondary to underlying viral pneumonia. She notes nausea, emesis and loose stools have nearly resolved. Patient denies fevers, chills, nausea, emesis, abdominal pain. Objective Data Objective Data Vital Signs: Vital Signs Temp Pulse Resp BP Pulse Ox 99.2 F H 95 39 H 135/51 H 92 07/25/20 04:00 07/25/20 06:00 07/25/20 06:00 07/25/20 06:00 07/25/20 06:00 Oxygen Flow Rate (L/min) [At 8 REST with Oxygen] Oxygen Flow Rate (L/min) [ 5 AMBULATING with Oxygen #1] Oxygen Flow Rate (L/min) 60 Oxygen Delivery Method Airvo Weight: 240 lb 8.389 oz Body Mass Index (BMI) 36.2 Intake & Output: Intake and Output for Last 24 Hours 07/23/20 07/24/20 07/25/20 23:59 23:59 23:59 Intake Total 1690 / 1810 480 / 480 Output Total 0 / 0 Balance 1690 / 1810 480 / 480 Lab / Micro Data Result Diagrams: 07/25/20 03:40 07/25/20 03:40 Labs: Laboratory Results - last 24 hr 07/24/20 07/24/20 07/24/20 05:50 05:50 05:50 WBC RBC Hgb Hct MCV MCH MCHC RDW Std Deviation RDW Coeff of Brandon Plt Count MPV Immature Gran % (Auto) Neut % (Auto) Lymph % (Auto) [place] % (Auto) Eos % (Auto) Baso % (Auto) Absolute Neuts (auto) Absolute Lymphs (auto) Nucleated RBC % PT 12.1 INR 1.0 D-Dimer Quant (PE/DVT) 4.91 H* Sodium Potassium Chloride Carbon Dioxide Anion Gap BUN Creatinine Estim Creat Clear Calc Est GFR (MDRD) Af Amer Est GFR (MDRD) Non-Af BUN/Creatinine Ratio Glucose Lactic Acid 2.1 H* Calcium Magnesium 2.1 Ferritin 304 H Total Bilirubin AST ALT Alkaline Phosphatase 96 Lactate Dehydrogenase 398 H Troponin I < 0.015 C-React Prot Ext Range 87.10 H B-Natriuretic Peptide Total Protein Albumin Globulin Albumin/Globulin Ratio Procalcitonin Blood Type Antibody Screen 07/24/20 07/24/20 07/24/20 05:50 05:50 10:10 WBC RBC Hgb Hct MCV MCH MCHC RDW Std Deviation RDW Coeff of Brandon Plt Count MPV Immature Gran % (Auto) Neut % (Auto) Lymph % (Auto) [place] % (Auto) Eos % (Auto) Baso % (Auto) Absolute Neuts (auto) Absolute Lymphs (auto) Nucleated RBC % PT INR D-Dimer Quant (PE/DVT) Sodium Potassium Chloride Carbon Dioxide Anion Gap BUN Creatinine Estim Creat Clear Calc Est GFR (MDRD) Af Amer Est GFR (MDRD) Non-Af BUN/Creatinine Ratio Glucose Lactic Acid 1.9 Calcium Magnesium Ferritin Total Bilirubin AST ALT Alkaline Phosphatase Lactate Dehydrogenase Troponin I C-React Prot Ext Range B-Natriuretic Peptide < 2.0 Total Protein Albumin Globulin Albumin/Globulin Ratio Procalcitonin 0.12 H Blood Type Antibody Screen 07/25/20 07/25/20 07/25/20 03:40 03:40 03:40 WBC 9.5 RBC 4.44 Hgb 12.5 Hct 38.1 MCV 85.8 MCH 28.2 MCHC 32.8 RDW Std Deviation 45.0 H RDW Coeff of Brandon 14.1 Plt Count 217 MPV 10.1 Immature Gran % (Auto) 0.300 Neut % (Auto) 89.3 H Lymph % (Auto) 8.0 L [place] % (Auto) 2.4 Eos % (Auto) 0.0 Baso % (Auto) 0.0 Absolute Neuts (auto) 8.5 H Absolute Lymphs (auto) 0.76 L Nucleated RBC % 0 PT INR D-Dimer Quant (PE/DVT) Sodium 142 Potassium 3.9 Chloride 108 H Carbon Dioxide 27.0 Anion Gap 7 BUN 9 Creatinine 0.68 Estim Creat Clear Calc 130.91 Est GFR (MDRD) Af Amer 137 Est GFR (MDRD) Non-Af 114 BUN/Creatinine Ratio 13.2 Glucose 123 H Lactic Acid Calcium 8.2 L Magnesium Ferritin Total Bilirubin 0.30 AST 51 H ALT 38 Alkaline Phosphatase 80 Lactate Dehydrogenase Troponin I C-React Prot Ext Range B-Natriuretic Peptide Total Protein 6.6 Albumin 2.6 L Globulin 4.0 Albumin/Globulin Ratio 0.6 L Procalcitonin Blood Type A POSITIVE Antibody Screen NEGATIVE Micro: Microbiology 07/24/20 15:00 Urine, Clean Catch Legionella Antigen - Final 07/24/20 15:00 Urine, Clean Catch Streptococcus pneumoniae Antigen (M - Final 07/24/20 07:55 Mucosa - Nose Respiratory Panel (PCR) - Final Radiography Diagnostic Testing: Radiology Impression Chest X-Ray 07/24/20 06:03 IMPRESSION: Findings suspicious for multifocal pneumonia highly suggestive of Covid pneumonia. Electronically Signed: Eva Bourgeois MD at 6:22 EDT Tel , Service support , Chest CTA 07/24/20 06:34 IMPRESSION: No visualized pulmonary embolism. Multifocal pneumonia highly suspicious for Covid pneumonia. Mild to moderate splenomegaly. Electronically Signed: Eva Bourgeois MD at 7:12 EDT Tel , Service support , Physical Exam Narrative Physical Examination: General: awake, alert, oriented x 3 and cooperative, seated upright in the ED ICU bed, fatigued, air Vo in place, respiratory rate increased. Skin: normal color, turgor, no icterus, cyanosis. HEENT: AT/NC, EOMI, PERRLA, dry MM, interval in place. Lungs: Diffusely diminished, still increased work of breathing and increased respiratory rate, air Vo in place, no obvious rales, rhonchi or wheezing. Heart: Currently regular rate with regular rhythm; no gallop, rub audible. Abdomen: soft, obese, NTTP, ND, normalized BS. Extremities: no cyanosis, clubbing, or edema. Neurological: patient awake, alert, oriented as noted; cognitive function intact; pupils equally reactive to light and accomodation; cranial nerves II-XII grossly normal, moving all 4 extremities, no focal deficits, strength remains severely globally decreased secondary to acute presentation. Psychiatric: affect appears fatigued, ill appearing, still increased respiratory rate and some accessory muscle usage, no acute evidence of depressive or anxiety feelings. 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 [place] ED on 07/24/20 with history of recent onset COVID type symptoms x 6 days starting this past Tuesday with cough, fatigue, low grade T, malaise, dyspnea, nausea, emesis, abdominal cramping with loose stools, decreased sense of taste/smell, frontal mild headaches, body aches, progressively worsening with positive testing at [facility]. 1. Acute Severe Sepsis secondary to Acute Hypoxic Respiratory Failure secondary to Acute Bilateral Pneumonia secondary to Acute Viral Syndrome, COVID-19: CTPA upon presentation w/ no evidence of PE, multifocal pneumonia consistent with Covid pneumonia, mild to moderate splenomegaly. Patient admitted to the ICU given severe sepsis status, maintain on COVID precautions, transitioned to airvo from [place] overnight following admission, PRN albuterol, HOB, IS parameters w/ requested sputum cultures, respiratory viral panel negative, urine antigens negative, initial lactic acid 2.1 with improvement to 1.9, ferritin 304, LDH 398, troponin less than 0.015, CRP 87.10, BNP less than 2, procalcitonin 0.12, continue supportive care including q 2 hour turning including prone given no prone bed availability and judicious hydration, closely monitor for worsening status for ARDS and multiorgan failure, ongoing consultation with Infectious disease and Pulm/CC, initiated and continue IV decadron x 10 doses and IV remdesivir but defer to discretion of Infectious disease. T+S resulted w/ A+ blood type. 2. Incidentally noted splenomegaly: CT with noted evidence splenomegaly, likely related with #1, may need to implement precautions at her discharge although no contact sports history. 3. Hypokalemia: Admission K+ 3.4, magnesium level obtained and noted to be 2.1, supplementation given, 07/25/20 K 3.9. 4. Hyperglycemia: Admission glucose 125, possibly stress response, will continue to monitor and if remains elevated will obtain hemoglobin A1c. 5. Elevated LFTs: Likely secondary to #1, admission AST/ALT 72/48-> 07/25/2020 AST/ALT 51/38, improving, continue to trend. 6. Anxiety and Depression: Continue home sertraline and xanax regimen cautiously. Given notable anxiety affecting #1 presentation, added low dose PRN ativan as well. Discussed intervention needs at length and encouraged routine facetime and interactive with her family given isolation. 7. DVT Prophylaxis: SCDs, lovenox. Visit Charges Inpatient E&M: 90130 Subs Hosp L3
--- NOTE | 2020-07-25 06:31 | PN.CC_ITS ---
Subjective Subjective: The patient was seen and examined at the bedside this morning. Events from the last 24 hours have been reviewed. The patient is currently afebrile, hemodynamically stable and maintaining appropriate oxygen saturations on Airvo heated high flow oxygen with an FiO2 requirement of 80% and flow rate of 60 L/min. Nursing staff reports that the patient has been suffering from a great deal of anxiety overnight. She remains on remdesivir and Decadron. She is currently documented to be overall net +2.1 L for the hospital admission. Liver and renal function are stable. Objective Data Objective Data The patient's most recent lab work, culture data and imaging studies have all been personally reviewed. Vital Signs: Vital Signs Temp Pulse Resp BP Pulse Ox 99.2 F H 95 39 H 135/51 H 92 07/25/20 04:00 07/25/20 06:00 07/25/20 06:00 07/25/20 06:00 07/25/20 06:00 Oxygen Flow Rate (L/min) [At 8 REST with Oxygen] Oxygen Flow Rate (L/min) [ 5 AMBULATING with Oxygen #1] Oxygen Flow Rate (L/min) 60 Oxygen Delivery Method Airvo Weight: 240 lb 8.389 oz Body Mass Index (BMI) 36.2 Intake & Output: Intake and Output for Last 24 Hours 07/23/20 07/24/20 07/25/20 23:59 23:59 23:59 Intake Total 1690 / 1810 480 / 480 Output Total 0 / 0 Balance 1690 / 1810 480 / 480 Lab / Micro Data Attestation: I reviewed the patient's lab results. Result Diagrams: 07/25/20 03:40 07/25/20 03:40 Labs: Laboratory Results - last 24 hr 07/24/20 07/24/20 07/24/20 05:50 05:50 05:50 WBC RBC Hgb Hct MCV MCH MCHC RDW Std Deviation RDW Coeff of Brandon Plt Count MPV Immature Gran % (Auto) Neut % (Auto) Lymph % (Auto) [place] % (Auto) Eos % (Auto) Baso % (Auto) Absolute Neuts (auto) Absolute Lymphs (auto) Nucleated RBC % PT 12.1 INR 1.0 D-Dimer Quant (PE/DVT) 4.91 H* Sodium Potassium Chloride Carbon Dioxide Anion Gap BUN Creatinine Estim Creat Clear Calc Est GFR (MDRD) Af Amer Est GFR (MDRD) Non-Af BUN/Creatinine Ratio Glucose Lactic Acid Calcium Magnesium 2.1 Ferritin 304 H Total Bilirubin AST ALT Alkaline Phosphatase 96 Lactate Dehydrogenase 398 H Troponin I < 0.015 C-React Prot Ext Range 87.10 H B-Natriuretic Peptide < 2.0 Total Protein Albumin Globulin Albumin/Globulin Ratio Procalcitonin Blood Type Antibody Screen 07/24/20 07/24/20 07/25/20 05:50 10:10 03:40 WBC 9.5 RBC 4.44 Hgb 12.5 Hct 38.1 MCV 85.8 MCH 28.2 MCHC 32.8 RDW Std Deviation 45.0 H RDW Coeff of [place] 14.1 Plt Count 217 MPV 10.1 Immature Gran % (Auto) 0.300 Neut % (Auto) 89.3 H Lymph % (Auto) 8.0 L Morrison % (Auto) 2.4 Eos % (Auto) 0.0 Baso % (Auto) 0.0 Absolute Neuts (auto) 8.5 H Absolute Lymphs (auto) 0.76 L Nucleated RBC % 0 PT INR D-Dimer Quant (PE/DVT) Sodium Potassium Chloride Carbon Dioxide Anion Gap BUN Creatinine Estim Creat Clear Calc Est GFR (MDRD) Af Amer Est GFR (MDRD) Non-Af BUN/Creatinine Ratio Glucose Lactic Acid 1.9 Calcium Magnesium Ferritin Total Bilirubin AST ALT Alkaline Phosphatase Lactate Dehydrogenase Troponin I C-React Prot Ext Range B-Natriuretic Peptide Total Protein Albumin Globulin Albumin/Globulin Ratio Procalcitonin 0.12 H Blood Type Antibody Screen 07/25/20 07/25/20 03:40 03:40 WBC RBC Hgb Hct MCV MCH MCHC RDW Std Deviation RDW Coeff of [place] Plt Count MPV Immature Gran % (Auto) Neut % (Auto) Lymph % (Auto) Morrison % (Auto) Eos % (Auto) Baso % (Auto) Absolute Neuts (auto) Absolute Lymphs (auto) Nucleated RBC % PT INR D-Dimer Quant (PE/DVT) Sodium 142 Potassium 3.9 Chloride 108 H Carbon Dioxide 27.0 Anion Gap 7 BUN 9 Creatinine 0.68 Estim Creat Clear Calc 130.91 Est GFR (MDRD) Af Amer 137 Est GFR (MDRD) Non-Af 114 BUN/Creatinine Ratio 13.2 Glucose 123 H Lactic Acid Calcium 8.2 L Magnesium Ferritin Total Bilirubin 0.30 AST 51 H ALT 38 Alkaline Phosphatase 80 Lactate Dehydrogenase Troponin I C-React Prot Ext Range B-Natriuretic Peptide Total Protein 6.6 Albumin 2.6 L Globulin 4.0 Albumin/Globulin Ratio 0.6 L Procalcitonin Blood Type A POSITIVE Antibody Screen NEGATIVE Micro: Microbiology 07/24/20 15:00 Urine, Clean Catch Legionella Antigen - Final 07/24/20 15:00 Urine, Clean Catch Streptococcus pneumoniae Antigen (M - Final 07/24/20 07:55 Mucosa - Nose Respiratory Panel (PCR) - Final Radiography Diagnostic Testing: Radiology Impression Chest CTA 07/24/20 06:34 IMPRESSION: No visualized pulmonary embolism. Multifocal pneumonia highly suspicious for Covid pneumonia. Mild to moderate splenomegaly. Electronically Signed: Eva Bourgeois MD at 7:12 EDT Tel , Service support , Physical Exam Const alert, oriented x3 and no apparent distress Constitutional Narrative: Currently tolerating heated high flow oxygen. General Appearance: cooperative HEENT normocephalic, head/scalp atraumatic and moist oral mucous membranes Eyes PERRL and EOMs intact bilaterally Resp normal respiratory effort Effort and Inspection: tachypneic Auscultation: diminished lung sounds; Negative for rales, rhonchi or wheezes Cardio regular rate, regular rhythm, S1 normal heart sound and S2 normal heart sound GI normal to inspection, nondistended, normoactive bowel sounds Extremity no clubbing, cyanosis or edema Skin no rashes or lesions noted Neuro oriented x3, CN's II-XII intact bilaterally and moves all extremities Psych Mood & Affect: anxious Assessment & Plan Assessment/Plan (1) Acute respiratory failure with hypoxia: (2) Pneumonia due to COVID-19 virus: (3) COVID-19: PLAN: RECOMMENDATIONS: 1. Wean supplemental oxygen to maintain saturations at or above 90%. 2. Continue remdesivir. Monitor liver and renal function accordingly. 3. Continue Decadron to complete 10-day treatment course. 4. Continue twice daily Lovenox. 5. Continue baseline anxiolytics. 6. Encourage incentive spirometer use and mobilize patient as tolerated. IMPRESSIONS: 1. Acute hypoxemic respiratory failure secondary to COVID-19 pneumonia The patient was admitted to the hospital with an approximate 6-day course of Covid symptoms having tested positive at a local [facility] pharmacy. CTA chest revealed significant bilateral consolidative and groundglass changes without evidence for PE. The patient was subsequently placed on remdesivir and Decadron. We will continue to monitor liver and renal function accordingly. Continue to wean oxygen to maintain saturations at or above 90%. Continue Lovenox twice daily as ordered. 2. Anxiety/depression Complicates care, management, recovery and prognosis. Continue home medications as indicated. This note was generated with [employer] dictation software. It may contain incorrect words, spelling, and punctuation that were not noted in checking the note before signing. Visit Charges Inpatient E&M: 78769 Subs Hosp L3
[2020-07-25] MEDS: Famotidine 20 MG Tablet PO ×2 (10:32→21:07)
[2020-07-25] MEDS: Enoxaparin 30 MG/0.3 ML Syringe SC ×2 (10:32→21:07)
[2020-07-25] MEDS: dexAMETHasone 4 MG Tablet 6 MG PO (10:33)
[2020-07-25] MEDS: Sertraline 50 MG Tablet 25 MG PO (10:41)
[2020-07-25] MEDS: ALPRAZolam 0.25 MG Tablet PO (10:41)
[2020-07-25 13:50] LABS: Mucous, Urine 0 SEEN /hpf (<or=2+); White Blood Cells 0 SEEN /hpf (0-5)
--- NOTE | 2020-07-25 13:51 | PCM.PN.ID ---
Physical Exam Narrative Feeling better this afternoon, no fever Const alert General Appearance: cooperative Resp Auscultation: diminished lung sounds Cardio regular rate and regular rhythm GI normal to inspection, nondistended, normoactive bowel sounds Skin no rashes or lesions noted ID ID: Route of nutrition/ use of supplements: [] Nutritional Intake: [] IV Site: [] Ocasio Catheter: [] Assessment & Plan Assessment/Plan (1) COVID-19: PLAN: covid with hypoxia - sx started 07/19, not previously vaccinated. On dex. Cont remdesivir. On lovenox 30mg bid. D-dimer elevated, CT showed no PE. Quarantine for 20 days until 08/08. Recommend covid shot once she is out of quarantine. Sx improved, still on high O2. Will follow (2) Acute respiratory failure with hypoxia:
[2020-07-25 13:54] LABS: Color, Urine Yellow (Yellow); Glucose, Dipstick Normal (Normal); Ketone-Dipstick Negative (Negative); Leukocyte Esterase-Dipstick Negative /ul (Negative); Nitrite-Dipstick Negative (Negative); Occult Blood-Urine 250 /ul (Negative); Protein-Dipstick 30 mg/dl (Negative); Specific Gravity, Urine 1.005 (1.002-1.030); Urine Bilirubin Dipstick Negative (Negative); Urine Clarity Sl. Cloudy (Clear); Urine Urobilinogen Normal (Normal)
[2020-07-25 14:04] LABS: Bacteria RARE /hpf (None Seen); Red Blood Cells-Urine 0-5 SEEN /hpf (0-5); Squamous Epithelial Cells - UA 0-5 SEEN /hpf (5-10)
[2020-07-25] MEDS: guaiFENesin 10 ML UDC (200MG/10ML) PO (23:28)
[2020-07-26] VITALS (31 sets, daily range): BP systolic 93–143; BP diastolic 37–84; PULSE 54–94; RESP 26–38; TEMP 36.6–36.9; O2SAT 86–97
[2020-07-26] MEDS: LORazepam 2 MG/ML Syringe 0.5 MG IV ×4 (00:01→21:03)
[2020-07-26] MEDS: Ondansetron 4 MG/2 ML Vial IV (00:13)
[2020-07-26 05:16] LABS: Absolute Lymphocyte Count 0.92 X10^3/uL (0.83-4.51); Absolute Neutrophil Count 3.8 X10^3/uL (2.0-7.7); Hemoglobin 11.9 g/dL (12.0-15.0); Lymphocyte # 0.92 X10^3/ul (0.83-4.51); Lymphocyte % 17.8 % (19-41); Mean Corp Hgb Conc 32.2 g/dL (32-36); Mean Corpuscular Hgb 28.1 pg (27.0-32.0); Mean Corpuscular Volume 87.3 fL (81-99); Monocyte# 0.41 X10^3/uL; Monocyte% 7.9 % (0-10); NRBC Flagged by Analyzer 0 % (0-5); Neutrophil # 3.81 X10^3/uL (2.7-7.7); Neutrophil % 73.9 % (47-70); Platelet Count 237 K/mm3 (150-450); RBC Distribution Width CV 14.4 % (11.6-14.6); RBC Distribution Width SD 46.1 fl (35.1-43.9); Red Blood Count 4.24 M/mm3 (4.2-5.4); White Blood Count 5.2 K/mm3 (4.4-11.0)
[2020-07-26 05:33] LABS: ALB/GLOB Ratio 0.7 RATIO (0.9-2.4); AST(SGOT) 30 U/L (15-37); Alanine Aminotransfer ALT/SGPT 35 U/L (13-56); Albumin, Serum 2.6 g/dL (3.2-5.0); Alkaline Phosphatase 71 U/L (45-117); Anion Gap 4 (5-15); BUN 13 mg/dL (7-18); BUN/Creat Ratio 18.7 RATIO (10-20); Calcium,Total 8.4 mg/dL (8.5-10.1); Chloride 108 mmol/L (98-107); EST Glomerular Filtration Rate 111 mL/min (>60); Est Glom Filt Rate - Afr Amer 134 mL/min (>60); Estimated Creatinine Clearance 127.17 ml/min; Globulin 3.8 g/dL (2.2-4.2); Glucose 129 mg/dL (74-106); Potassium 3.9 mmol/L (3.5-5.1); Protein, Total 6.4 g/dL (6.4-8.2); Sodium Level 142 mmol/L (136-145)
--- NOTE | 2020-07-26 06:07 | PCM.PN.INT ---
Subjective Subjective: The patient was seen and examined at the bedside this morning. Events from the last 24 hours have been reviewed. The patient is currently afebrile, hemodynamically stable and maintaining appropriate oxygen saturations on Airvo heated high flow oxygen with an FiO2 requirement of 85% and flow rate of 40 L/min. The patient continues to have issues with anxiety, but did receive as needed Ativan overnight. She is currently documented to be overall net +2.7 L for the hospital admission. Liver and renal function are stable. Objective Data Objective Data The patient's most recent lab work, culture data and imaging studies have all been personally reviewed. Vital Signs: Vital Signs Temp Pulse Resp BP Pulse Ox 98.5 F 59 L 29 H 110/52 L 90 07/26/20 04:00 07/26/20 05:00 07/26/20 05:00 07/26/20 05:00 07/26/20 05:00 Oxygen Flow Rate (L/min) [At 8 REST with Oxygen] Oxygen Flow Rate (L/min) [ 5 AMBULATING with Oxygen #1] Oxygen Flow Rate (L/min) 40 Oxygen Delivery Method Airvo Weight: 238 lb 15.697 oz Body Mass Index (BMI) 36.2 Intake & Output: Intake and Output for Last 24 Hours 07/24/20 07/25/20 07/26/20 23:59 23:59 23:59 Intake Total 1690 / 1810 1820 / 2060 240 / 240 Output Total 0 / 0 1000 / 1000 Balance 1690 / 1810 820 / 1060 240 / 240 Lab / Micro Data Attestation: I reviewed the patient's lab results. Result Diagrams: 07/27/20 04:10 07/27/20 04:10 Labs: Laboratory Results - last 24 hr 07/24/20 07/26/20 07/26/20 15:00 05:05 05:05 WBC 5.2 RBC 4.24 Hgb 11.9 L Hct 37.0 MCV 87.3 MCH 28.1 MCHC 32.2 RDW Std Deviation 46.1 H RDW Coeff of Brandon 14.4 Plt Count 237 MPV 10.0 Immature Gran % (Auto) 0.400 Neut % (Auto) 73.9 H Lymph % (Auto) 17.8 L Graves % (Auto) 7.9 Eos % (Auto) 0.0 Baso % (Auto) 0.0 Absolute Neuts (auto) 3.8 Absolute Lymphs (auto) 0.92 Nucleated RBC % 0 Sodium 142 Potassium 3.9 Chloride 108 H Carbon Dioxide 30.0 Anion Gap 4 L BUN 13 Creatinine 0.70 Estim Creat Clear Calc 127.17 Est GFR (MDRD) Af Amer 134 Est GFR (MDRD) Non-Af 111 BUN/Creatinine Ratio 18.7 Glucose 129 H Calcium 8.4 L Total Bilirubin 0.30 AST 30 ALT 35 Alkaline Phosphatase 71 Total Protein 6.4 Albumin 2.6 L Globulin 3.8 Albumin/Globulin Ratio 0.7 L Urine Color Yellow Urine Clarity Sl. Cloudy Urine pH 7.0 Ur Specific [place] 1.005 Urine Protein 30 H Urine Glucose (UA) Normal Urine Ketones Negative Urine Occult Blood 250 H Urine Nitrite Negative Urine Bilirubin Negative Urine Urobilinogen Normal Ur Leukocyte Esterase Negative Urine RBC 0-5 SEEN Urine WBC 0 SEEN Ur Squamous Epith Cells 0-5 SEEN Urine Bacteria RARE Urine Mucus 0 SEEN Micro: Microbiology 07/24/20 15:00 Urine, Clean Catch Urine Culture - Preliminary Culture exhibits no growth. 07/24/20 15:00 Urine, Clean Catch Legionella Antigen - Final 07/24/20 15:00 Urine, Clean Catch Streptococcus pneumoniae Antigen (M - Final 07/24/20 07:55 Mucosa - Nose Respiratory Panel (PCR) - Final Physical Exam Const alert, oriented x3 and no apparent distress Constitutional Narrative: Currently tolerating heated high flow oxygen. General Appearance: cooperative and well developed HEENT normocephalic, head/scalp atraumatic and moist oral mucous membranes Eyes PERRL and EOMs intact bilaterally Chest inspection of chest normal Resp Effort and Inspection: tachypneic Auscultation: diminished lung sounds; Negative for rales, rhonchi or wheezes Cardio regular rhythm, S1 normal heart sound and S2 normal heart sound Rate: bradycardia GI normal to inspection, nondistended, normoactive bowel sounds Extremity no clubbing, cyanosis or edema Skin no rashes or lesions noted Neuro oriented x3, CN's II-XII intact bilaterally, moves all extremities and no focal motor deficits Psych cooperative and affect normal Appearance: well kempt Mood & Affect: anxious Assessment & Plan Assessment/Plan (1) Acute respiratory failure with hypoxia: (2) Pneumonia due to COVID-19 virus: (3) COVID-19: PLAN: RECOMMENDATIONS: 1. Wean supplemental oxygen to maintain saturations at or above 90%. 2. Continue remdesivir. Monitor liver and renal function accordingly. 3. Continue Decadron to complete 10-day treatment course. 4. Continue twice daily Lovenox. 5. Continue baseline anxiolytics. 6. Encourage incentive spirometer use and mobilize patient as tolerated. IMPRESSIONS: 1. Acute hypoxemic respiratory failure secondary to COVID-19 pneumonia The patient was admitted to the hospital with an approximate 6-day course of Covid symptoms having tested positive at a local [facility] pharmacy. CTA chest revealed significant bilateral consolidative and groundglass changes without evidence for PE. The patient was subsequently placed on remdesivir and Decadron. We will continue to monitor liver and renal function accordingly. Continue to wean oxygen to maintain saturations at or above 90%. Continue Lovenox twice daily as ordered. 2. Anxiety/depression Complicates care, management, recovery and prognosis. Continue home medications as indicated. This note was generated with [employer] dictation software. It may contain incorrect words, spelling, and punctuation that were not noted in checking the note before signing. Visit Charges Inpatient E&M: 39435 Subs Hosp L3
--- NOTE | 2020-07-26 06:26 | PCM.PN.HOSP ---
Subjective Subjective: Patient overnight with continued increased anxiety and ongoing air Vo needs with FiO2 requirements up to 85% with flow rate of 40 L/min. Despite several individuals and contact with family to strongly encourage patient improvement of respiratory efforts and aggressive usage of I-S she has been very reticent secondary to discomfort with these attempts. Again discussed at length and strongly encouraged patient to continue with recommended conservative measures. Patient denies fevers, chills, nausea, emesis, abdominal pain. Objective Data Objective Data Vital Signs: Vital Signs Temp Pulse Resp BP Pulse Ox 98.5 F 59 L 31 H 112/47 L 90 07/26/20 04:00 07/26/20 06:00 07/26/20 06:00 07/26/20 06:00 07/26/20 06:00 Oxygen Flow Rate (L/min) [At 8 REST with Oxygen] Oxygen Flow Rate (L/min) [ 5 AMBULATING with Oxygen #1] Oxygen Flow Rate (L/min) 40 Oxygen Delivery Method Airvo Weight: 238 lb 15.697 oz Body Mass Index (BMI) 36.2 Intake & Output: Intake and Output for Last 24 Hours 07/24/20 07/25/20 07/26/20 23:59 23:59 23:59 Intake Total 1690 / 1810 1820 / 2060 360 / 360 Output Total 0 / 0 1000 / 1000 Balance 1690 / 1810 820 / 1060 360 / 360 Lab / Micro Data Result Diagrams: 07/26/20 05:05 07/26/20 05:05 Labs: Laboratory Results - last 24 hr 07/24/20 07/26/20 07/26/20 15:00 05:05 05:05 WBC 5.2 RBC 4.24 Hgb 11.9 L Hct 37.0 MCV 87.3 MCH 28.1 MCHC 32.2 RDW Std Deviation 46.1 H RDW Coeff of Brandon 14.4 Plt Count 237 MPV 10.0 Immature Gran % (Auto) 0.400 Neut % (Auto) 73.9 H Lymph % (Auto) 17.8 L [place] % (Auto) 7.9 Eos % (Auto) 0.0 Baso % (Auto) 0.0 Absolute Neuts (auto) 3.8 Absolute Lymphs (auto) 0.92 Nucleated RBC % 0 Sodium 142 Potassium 3.9 Chloride 108 H Carbon Dioxide 30.0 Anion Gap 4 L BUN 13 Creatinine 0.70 Estim Creat Clear Calc 127.17 Est GFR (MDRD) Af Amer 134 Est GFR (MDRD) Non-Af 111 BUN/Creatinine Ratio 18.7 Glucose 129 H Calcium 8.4 L Total Bilirubin 0.30 AST 30 ALT 35 Alkaline Phosphatase 71 Total Protein 6.4 Albumin 2.6 L Globulin 3.8 Albumin/Globulin Ratio 0.7 L Urine Color Yellow Urine Clarity Sl. Cloudy Urine pH 7.0 Ur Specific [place] 1.005 Urine Protein 30 H Urine Glucose (UA) Normal Urine Ketones Negative Urine Occult Blood 250 H Urine Nitrite Negative Urine Bilirubin Negative Urine Urobilinogen Normal Ur Leukocyte Esterase Negative Urine RBC 0-5 SEEN Urine WBC 0 SEEN Ur Squamous Epith Cells 0-5 SEEN Urine Bacteria RARE Urine Mucus 0 SEEN Micro: Microbiology 07/24/20 15:00 Urine, Clean Catch Urine Culture - Preliminary Culture exhibits no growth. 07/24/20 15:00 Urine, Clean Catch Legionella Antigen - Final 07/24/20 15:00 Urine, Clean Catch Streptococcus pneumoniae Antigen (M - Final 07/24/20 07:55 Mucosa - Nose Respiratory Panel (PCR) - Final Physical Exam Narrative Physical Examination: General: awake, alert, oriented x 3 and cooperative, seated upright in the ED ICU bed, airvo in place, still anxious and poor deep respiratory effort. Skin: normal color, turgor, no icterus, cyanosis. HEENT: AT/NC, EOMI, PERRLA, mildly dry MM, airvo in place. Lungs: Diffusely diminished, still increased work of breathing and increased respiratory rate, airvo in place, no obvious rales, rhonchi or wheezing. Heart: Currently regular rate with regular rhythm; no gallop, rub audible. Abdomen: soft, obese, NTTP, ND, distant normal BS. Extremities: no cyanosis, clubbing, or edema. Neurological: patient awake, alert, oriented as noted; cognitive function intact; pupils equally reactive to light and accomodation; cranial nerves II-XII grossly normal, moving all 4 extremities, no focal deficits, strength remains moderately to severely globally decreased secondary to acute presentation. Psychiatric: affect appears fatigued, anxious, notes difficulty with deep inspiration secondary to anxiety with pain elicited, again re-iterates fear of with this disease which is discussed at length, history of depression. 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 1. Acute Severe Sepsis secondary to Acute Hypoxic Respiratory Failure secondary to Acute Bilateral Pneumonia secondary to Acute Viral Syndrome, COVID-19: CTPA upon presentation w/ no evidence of PE, multifocal pneumonia consistent with Covid pneumonia, mild to moderate splenomegaly. Patient admitted to the ICU given severe sepsis status, maintained on COVID precautions, transitioned to airvo from PR following admission and has had continuous elevated needs, 07/26/20 up to 85% with 40 L/min, PRN albuterol, HOB, IS parameters w/ requested sputum cultures, respiratory viral panel negative, urine antigens negative, initial lactic acid 2.1 with improvement to 1.9, ferritin 304, LDH 398, troponin less than 0.015, CRP 87.10, BNP less than 2, procalcitonin 0.12, continue supportive care including q 2 hour turning including prone given no prone bed availability and judicious hydration, closely monitor for worsening status for ARDS and multiorgan failure, ongoing consultation with Infectious disease and Pulm/CC, initiated and continue IV decadron x 10 doses and IV remdesivir but defer to discretion of Infectious disease. T+S resulted w/ A+ blood type. Strongly encouraging patient to improve effort, very anxious and poor inspiration not assisting her presentation which was discussed at length. If unable to improve her effort and current status continues may eventually require intubation which was discussed with patient also at length. 2. Incidentally noted splenomegaly: CT with noted evidence splenomegaly, likely related with #1, may need to implement precautions at her discharge although no contact sports history. 3. Hypokalemia: Admission K+ 3.4, magnesium level obtained and noted to be 2.1, supplementation given, 07/26/20 K 3.9. 4. Hyperglycemia: Admission glucose 125, suspect at admission stress response, 07/26/20 Glucose 129, possibly also now steroid associated increase. 5. Elevated LFTs: Likely secondary to #1, admission AST/ALT 72/48-> 07/26/2020 AST/ALT 30/35, resolving. 6. Anxiety and Depression: Continued home sertraline and xanax regimen cautiously. Given notable anxiety affecting #1 presentation, added low dose PRN ativan as well. 7. DVT Prophylaxis: SCDs, lovenox. Visit Charges Inpatient E&M: 92762 Subs Hosp L3
[2020-07-26] MEDS: 0.9% Saline Lock 10 ML Syringe IV ×3 (08:00→21:04)
--- NOTE | 2020-07-26 08:57 | CPS ---
Increased to 50LPM on the Airvo.
[2020-07-26] MEDS: Sertraline 50 MG Tablet 25 MG PO (09:05)
[2020-07-26] MEDS: Famotidine 20 MG Tablet PO ×2 (09:05→21:03)
[2020-07-26] MEDS: dexAMETHasone 4 MG Tablet 6 MG PO (09:05)
[2020-07-26] MEDS: ALPRAZolam 0.25 MG Tablet PO (09:05)
[2020-07-26] MEDS: Albuterol Sulfate 8 gm Inhaler (60 puffs) INHALATION (09:22)
[2020-07-26] MEDS: Enoxaparin 30 MG/0.3 ML Syringe SC ×2 (09:28→21:03)
[2020-07-26] MEDS: Acetaminophen 325 MG Tablet 650 MG PO (14:35)
[2020-07-26] MEDS: proCHLORPERazine 10 MG/2 ML Vial 5 MG IV (14:35)
[2020-07-26] MEDS: guaiFENesin 10 ML UDC (200MG/10ML) PO (21:11)
[2020-07-27] VITALS (20 sets, daily range): BP systolic 111–133; BP diastolic 41–77; PULSE 45–80; RESP 17–32; TEMP 36.2–37.1; O2SAT 88–98
[2020-07-27] MEDS: Ondansetron 4 MG/2 ML Vial IV ×2 (04:16→09:15)
[2020-07-27] MEDS: 0.9% Saline Lock 10 ML Syringe IV ×3 (04:16→20:58)
[2020-07-27] MEDS: LORazepam 2 MG/ML Syringe 0.5 MG IV ×3 (04:18→20:58)
[2020-07-27 04:27] LABS: Absolute Lymphocyte Count 1.25 X10^3/uL (0.83-4.51); Absolute Neutrophil Count 4.9 X10^3/uL (2.0-7.7); Basophil# 0.01 X10^3/uL; Basophil% 0.1 % (0-1); Hematocrit 38.3 % (37-47); Hemoglobin 12.3 g/dL (12.0-15.0); Lymphocyte # 1.25 X10^3/ul (0.83-4.51); Lymphocyte % 18.5 % (19-41); Mean Corp Hgb Conc 32.1 g/dL (32-36); Mean Corpuscular Hgb 27.7 pg (27.0-32.0); Mean Corpuscular Volume 86.3 fL (81-99); Mean Platelet Vol. 10.1 fl (6.2-12.0); Monocyte# 0.53 X10^3/uL; Monocyte% 7.9 % (0-10); NRBC Flagged by Analyzer 0 % (0-5); Neutrophil # 4.88 X10^3/uL (2.7-7.7); Neutrophil % 72.3 % (47-70); Platelet Count 265 K/mm3 (150-450); RBC Distribution Width CV 14.1 % (11.6-14.6); RBC Distribution Width SD 44.8 fl (35.1-43.9); Red Blood Count 4.44 M/mm3 (4.2-5.4); White Blood Count 6.8 K/mm3 (4.4-11.0)
[2020-07-27 04:43] LABS: ALB/GLOB Ratio 0.7 RATIO (0.9-2.4); AST(SGOT) 49 U/L (15-37); Alanine Aminotransfer ALT/SGPT 52 U/L (13-56); Albumin, Serum 2.6 g/dL (3.2-5.0); Alkaline Phosphatase 70 U/L (45-117); Anion Gap 4 (5-15); BUN 11 mg/dL (7-18); BUN/Creat Ratio 17.4 RATIO (10-20); Calcium,Total 8.2 mg/dL (8.5-10.1); Chloride 109 mmol/L (98-107); Creatinine, Serum 0.63 mg/dL (0.55-1.02); EST Glomerular Filtration Rate 124 mL/min (>60); Est Glom Filt Rate - Afr Amer 150 mL/min (>60); Globulin 3.8 g/dL (2.2-4.2); Glucose 127 mg/dL (74-106); Potassium 3.8 mmol/L (3.5-5.1); Protein, Total 6.4 g/dL (6.4-8.2); Sodium Level 141 mmol/L (136-145)
--- NOTE | 2020-07-27 05:50 | PCM.PN.INT ---
Subjective Subjective: The patient was seen and examined at the bedside this morning. Events from the last 24 hours have been reviewed. The patient is currently afebrile, hemodynamically stable and maintaining appropriate oxygen saturations on Airvo heated high flow oxygen with an FiO2 requirement of 70% and flow rate of 50 L/min. The patient continues to have issues with anxiety, but did receive as needed Ativan overnight. She is currently documented to be overall net +4.1 L for the hospital admission. Liver and renal function are stable. Objective Data Objective Data The patient's most recent lab work, culture data and imaging studies have all been personally reviewed. Vital Signs: Vital Signs Temp Pulse Resp BP Pulse Ox 97.2 F L 66 32 H 133/62 H 90 07/27/20 04:00 07/27/20 04:13 07/27/20 04:00 07/27/20 04:00 07/27/20 04:13 Oxygen Flow Rate (L/min) [At 8 REST with Oxygen] Oxygen Flow Rate (L/min) [ 5 AMBULATING with Oxygen #1] Oxygen Flow Rate (L/min) 50 Oxygen Delivery Method Airvo Weight: 238 lb 8.642 oz Body Mass Index (BMI) 36.2 Intake & Output: Intake and Output for Last 24 Hours 07/25/20 07/26/20 07/27/20 23:59 23:59 23:59 Intake Total 1820 / 2060 2890 / 3130 600 / 600 Output Total 1000 / 1000 1900 / 1900 Balance 820 / 1060 990 / 1230 600 / 600 Lab / Micro Data Attestation: I reviewed the patient's lab results. Result Diagrams: 07/27/20 04:10 07/27/20 04:10 Labs: Laboratory Results - last 24 hr 07/27/20 07/27/20 04:10 04:10 WBC 6.8 RBC 4.44 Hgb 12.3 Hct 38.3 MCV 86.3 MCH 27.7 MCHC 32.1 RDW Std Deviation 44.8 H RDW Coeff of [place] 14.1 Plt Count 265 MPV 10.1 Immature Gran % (Auto) 1.200 H Neut % (Auto) 72.3 H Lymph % (Auto) 18.5 L [place] % (Auto) 7.9 Eos % (Auto) 0.0 Baso % (Auto) 0.1 Absolute Neuts (auto) 4.9 Absolute Lymphs (auto) 1.25 Nucleated RBC % 0 Sodium 141 Potassium 3.8 Chloride 109 H Carbon Dioxide 28.0 Anion Gap 4 L BUN 11 Creatinine 0.63 Estim Creat Clear Calc 141.30 Est GFR (MDRD) Af Amer 150 Est GFR (MDRD) Non-Af 124 BUN/Creatinine Ratio 17.4 Glucose 127 H Calcium 8.2 L Total Bilirubin 0.30 AST 49 H ALT 52 Alkaline Phosphatase 70 Total Protein 6.4 Albumin 2.6 L Globulin 3.8 Albumin/Globulin Ratio 0.7 L Micro: Microbiology 07/25/20 19:20 Sputum, Expectorated/Coughed Gram Stain - Final 07/24/20 05:50 Blood Culture (Wb) - Anticubital Left Blood Culture - Preliminary No growth in 48 hours. 07/24/20 15:00 Urine, Clean Catch Urine Culture - Preliminary Culture exhibits no growth. 07/24/20 15:00 Urine, Clean Catch Legionella Antigen - Final 07/24/20 15:00 Urine, Clean Catch Streptococcus pneumoniae Antigen (M - Final 07/24/20 07:55 Mucosa - Nose Respiratory Panel (PCR) - Final Physical Exam Const alert, oriented x3 and no apparent distress Constitutional Narrative: Currently tolerating heated high flow oxygen. General Appearance: cooperative and well developed HEENT normocephalic, head/scalp atraumatic and moist oral mucous membranes Eyes PERRL, EOMs intact bilaterally and conjunctivae normal Chest inspection of chest normal Resp normal respiratory effort Effort and Inspection: tachypneic Auscultation: diminished lung sounds; Negative for rales, rhonchi or wheezes Cardio regular rate, regular rhythm, S1 normal heart sound and S2 normal heart sound GI normal to inspection, nondistended, normoactive bowel sounds Extremity no clubbing, cyanosis or edema Skin no rashes or lesions noted Neuro oriented x3, CN's II-XII intact bilaterally, moves all extremities and no focal motor deficits Psych cooperative and affect normal Appearance: well kempt Mood & Affect: anxious Assessment & Plan Assessment/Plan (1) Acute respiratory failure with hypoxia: (2) Pneumonia due to COVID-19 virus: (3) COVID-19: PLAN: RECOMMENDATIONS: 1. Wean supplemental oxygen to maintain saturations at or above 90%. 2. Continue remdesivir. Monitor liver and renal function accordingly. 3. Continue Decadron to complete 10-day treatment course. 4. Continue twice daily Lovenox. 5. Continue baseline anxiolytics. 6. Encourage incentive spirometer use and mobilize patient as tolerated. IMPRESSIONS: 1. Acute hypoxemic respiratory failure secondary to COVID-19 pneumonia The patient was admitted to the hospital with an approximate 6-day course of Covid symptoms having tested positive at a local [facility] pharmacy. CTA chest revealed significant bilateral consolidative and groundglass changes without evidence for PE. The patient was subsequently placed on remdesivir and Decadron. We will continue to monitor liver and renal function accordingly. Continue to wean oxygen to maintain saturations at or above 90%. Continue Lovenox twice daily as ordered. 2. Anxiety/depression Complicates care, management, recovery and prognosis. Continue home medications as indicated. This note was generated with [employer] dictation software. It may contain incorrect words, spelling, and punctuation that were not noted in checking the note before signing. Visit Charges Inpatient E&M: 14341 Subs Hosp L3
--- NOTE | 2020-07-27 06:13 | PCM.PN.HOSP ---
Subjective Subjective: Patient overnight with improvement in her effort, more willing to do deep inspiratory exercises and appears more comfortable this morning. She notes that her pleuritic discomfort is lessening. She notes less coughing and feels less dyspneic. She remains on airvo w/ FiO2 in the 70s and O2 flow rate 50%. Patient denies fevers, chills, nausea, emesis, abdominal pain. Objective Data Objective Data Vital Signs: Vital Signs Temp Pulse Resp BP Pulse Ox 97.2 F L 66 32 H 133/62 H 90 07/27/20 04:00 07/27/20 04:13 07/27/20 04:00 07/27/20 04:00 07/27/20 04:13 Oxygen Flow Rate (L/min) [At 8 REST with Oxygen] Oxygen Flow Rate (L/min) [ 5 AMBULATING with Oxygen #1] Oxygen Flow Rate (L/min) 50 Oxygen Delivery Method Airvo Weight: 238 lb 8.642 oz Body Mass Index (BMI) 36.2 Intake & Output: Intake and Output for Last 24 Hours 07/25/20 07/26/20 07/27/20 23:59 23:59 23:59 Intake Total 1820 / 2060 2890 / 3130 600 / 600 Output Total 1000 / 1000 1900 / 1900 Balance 820 / 1060 990 / 1230 600 / 600 Lab / Micro Data Result Diagrams: 07/27/20 04:10 07/27/20 04:10 Labs: Laboratory Results - last 24 hr 07/27/20 07/27/20 04:10 04:10 WBC 6.8 RBC 4.44 Hgb 12.3 Hct 38.3 MCV 86.3 MCH 27.7 MCHC 32.1 RDW Std Deviation 44.8 H RDW Coeff of [place] 14.1 Plt Count 265 MPV 10.1 Immature Gran % (Auto) 1.200 H Neut % (Auto) 72.3 H Lymph % (Auto) 18.5 L [place] % (Auto) 7.9 Eos % (Auto) 0.0 Baso % (Auto) 0.1 Absolute Neuts (auto) 4.9 Absolute Lymphs (auto) 1.25 Nucleated RBC % 0 Sodium 141 Potassium 3.8 Chloride 109 H Carbon Dioxide 28.0 Anion Gap 4 L BUN 11 Creatinine 0.63 Estim Creat Clear Calc 141.30 Est GFR (MDRD) Af Amer 150 Est GFR (MDRD) Non-Af 124 BUN/Creatinine Ratio 17.4 Glucose 127 H Calcium 8.2 L Total Bilirubin 0.30 AST 49 H ALT 52 Alkaline Phosphatase 70 Total Protein 6.4 Albumin 2.6 L Globulin 3.8 Albumin/Globulin Ratio 0.7 L Micro: Microbiology 07/25/20 19:20 Sputum, Expectorated/Coughed Gram Stain - Final 07/24/20 05:50 Blood Culture (Wb) - Anticubital Left Blood Culture - Preliminary No growth in 48 hours. 07/24/20 15:00 Urine, Clean Catch Urine Culture - Preliminary Culture exhibits no growth. 07/24/20 15:00 Urine, Clean Catch Legionella Antigen - Final 07/24/20 15:00 Urine, Clean Catch Streptococcus pneumoniae Antigen (M - Final 07/24/20 07:55 Mucosa - Nose Respiratory Panel (PCR) - Final Physical Exam Narrative Physical Examination: General: awake, alert, oriented x 3 and cooperative, seated upright in the ICU bed, airvo in place, more comfortable than day prior. Skin: normal color, turgor, no icterus, cyanosis. HEENT: AT/NC, EOMI, PERRLA, mildly dry MM, airvo in place. Lungs: Improved effort, still remains diffusely diminished, airvo in place, no obvious rales, rhonchi or wheezing. Heart: Regular rate with regular rhythm; no gallop, rub audible. Abdomen: soft, obese, NTTP, ND, distant normal BS. Extremities: no cyanosis, clubbing, or edema. Neurological: patient awake, alert, oriented as noted; cognitive function intact; pupils equally reactive to light and accomodation; cranial nerves II-XII grossly normal, moving all 4 extremities, no focal deficits, strength improved, remains moderately globally decreased secondary to acute presentation. Psychiatric: affect appears less fatigued, less anxious, history of depression. 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 1. Acute Severe Sepsis secondary to Acute Hypoxic Respiratory Failure secondary to Acute Bilateral Pneumonia secondary to Acute Viral Syndrome, COVID-19: CTPA upon presentation w/ no evidence of PE, multifocal pneumonia consistent with Covid pneumonia, mild to moderate splenomegaly. Patient admitted to the ICU given severe sepsis status, maintained on COVID precautions, transitioned to airvo from [place] following admission and has had continuous elevated needs, 07/26/20 up to 85% with 40 L/min, PRN albuterol, HOB, IS parameters w/ requested sputum cultures, respiratory viral panel negative, urine antigens negative, initial lactic acid 2.1 with improvement to 1.9, ferritin 304, LDH 398, troponin less than 0.015, CRP 87.10, BNP less than 2, procalcitonin 0.12, continue supportive care including q 2 hour turning including prone given no prone bed availability and judicious hydration, closely monitor for worsening status for ARDS and multiorgan failure, ongoing consultation with Infectious disease and Pulm/CC, initiated and continue IV decadron x 10 doses and IV remdesivir but defer to discretion of Infectious disease. T+S resulted w/ A+ blood type. 07/26-07/27/20 improved effort, more comfortable appearance with less pleuritic pain. 2. Incidentally noted splenomegaly: CT with noted evidence splenomegaly, likely related with #1, may need to implement precautions at her discharge although no contact sports history. 3. Hypokalemia: Admission K+ 3.4, magnesium level obtained and noted to be 2.1, supplementation given, 07/27/20 K 3.8. 4. Hyperglycemia: Admission glucose 125, suspect at admission stress response, 07/27/20 Glucose 127, possibly also now steroid associated increase. 5. Elevated LFTs: Likely secondary to #1, admission AST/ALT 72/48-> 07/27/2020 AST/ALT 49/52. 6. Anxiety and Depression: Continued home sertraline and xanax regimen cautiously. Given notable anxiety affecting #1 presentation, added low dose PRN ativan as well but has appeared more relaxed upon evaluation 07/27/20. 7. DVT Prophylaxis: SCDs, lovenox. Visit Charges Inpatient E&M: 70057 Subs Hosp L2
[2020-07-27] MEDS: guaiFENesin 10 ML UDC (200MG/10ML) PO ×3 (09:16→20:59)
[2020-07-27] MEDS: Famotidine 20 MG Tablet PO ×2 (09:17→20:59)
[2020-07-27] MEDS: Sertraline 50 MG Tablet 25 MG PO (09:17)
[2020-07-27] MEDS: ALPRAZolam 0.25 MG Tablet PO (09:18)
[2020-07-27] MEDS: dexAMETHasone 4 MG Tablet 6 MG PO (09:18)
[2020-07-27] MEDS: Acetaminophen 325 MG Tablet 650 MG PO ×2 (09:23→16:21)
[2020-07-27] MEDS: APIXABAN 2.5 MG TABLET PO ×2 (12:42→20:59)
[2020-07-27] MEDS: Glycerin/Hypromellose/PEG400 15 ml Bottle 1 DRP EACH EYE ×2 (14:30→21:07)
[2020-07-27 16:02] LABS: M R Staph aureus DNA By PCR Negative (Negative); Probe Check PASS; Specimen Processing Control PASS
[2020-07-27] MEDS: Albuterol Sulfate 8 gm Inhaler (60 puffs) INHALATION (16:29)
[2020-07-28] VITALS (13 sets, daily range): BP systolic 112–127; BP diastolic 58–72; PULSE 45–67; RESP 18–27; TEMP 36.5–36.8; O2SAT 92–97
[2020-07-28 05:11] LABS: Absolute Lymphocyte Count 1.62 X10^3/uL (0.83-4.51); Absolute Neutrophil Count 4.8 X10^3/uL (2.0-7.7); Basophil# 0.02 X10^3/uL; Basophil% 0.3 % (0-1); Hematocrit 39.1 % (37-47); Hemoglobin 12.7 g/dL (12.0-15.0); Lymphocyte # 1.62 X10^3/ul (0.83-4.51); Lymphocyte % 22.1 % (19-41); Mean Corp Hgb Conc 32.5 g/dL (32-36); Mean Corpuscular Volume 86.1 fL (81-99); Mean Platelet Vol. 9.8 fl (6.2-12.0); Monocyte# 0.74 X10^3/uL; Monocyte% 10.1 % (0-10); NRBC Flagged by Analyzer 0 % (0-5); Neutrophil # 4.77 X10^3/uL (2.7-7.7); Neutrophil % 65.2 % (47-70); Platelet Count 293 K/mm3 (150-450); RBC Distribution Width SD 44.2 fl (35.1-43.9); Red Blood Count 4.54 M/mm3 (4.2-5.4); White Blood Count 7.3 K/mm3 (4.4-11.0)
--- NOTE | 2020-07-28 05:17 | NURSING ---
Pt c/o burning and urgency with urination.
[2020-07-28 05:26] LABS: ALB/GLOB Ratio 0.7 RATIO (0.9-2.4); AST(SGOT) 38 U/L (15-37); Alanine Aminotransfer ALT/SGPT 64 U/L (13-56); Albumin, Serum 2.7 g/dL (3.2-5.0); Alkaline Phosphatase 67 U/L (45-117); Anion Gap 7 (5-15); BUN 11 mg/dL (7-18); BUN/Creat Ratio 16.2 RATIO (10-20); Calcium,Total 8.2 mg/dL (8.5-10.1); Chloride 109 mmol/L (98-107); Creatinine, Serum 0.68 mg/dL (0.55-1.02); EST Glomerular Filtration Rate 114 mL/min (>60); Est Glom Filt Rate - Afr Amer 138 mL/min (>60); Estimated Creatinine Clearance 130.91 ml/min; Globulin 3.7 g/dL (2.2-4.2); Glucose 123 mg/dL (74-106); Potassium 3.9 mmol/L (3.5-5.1); Protein, Total 6.4 g/dL (6.4-8.2); Sodium Level 142 mmol/L (136-145)
--- NOTE | 2020-07-28 06:58 | PN.CC_ITS ---
Subjective Subjective: Patient did well overnight. Patient is not reporting any dyspnea this morning. Patient has reported urinary frequency and urgency. Patient states she has frequent UTIs at baseline and is concerned she may have a urinary tract infection. Patient is not reporting any significant cough. Patient has remained on Airvo with increased FiO2 overnight. Objective Data Objective Data Vital Signs: Vital Signs Temp Pulse Resp BP Pulse Ox 36.5 C L 56 L 22 H 127/72 H 92 07/28/20 04:00 07/28/20 04:54 07/28/20 04:54 07/28/20 04:00 07/28/20 04:54 Oxygen Flow Rate (L/min) [At 8 REST with Oxygen] Oxygen Flow Rate (L/min) [ 5 AMBULATING with Oxygen #1] Oxygen Flow Rate (L/min) 50 Oxygen Delivery Method Airvo Weight: 108 kg Body Mass Index (BMI) 36.2 Intake & Output: Intake and Output for Last 24 Hours 07/26/20 07/27/20 07/28/20 23:59 23:59 23:59 Intake Total 2890 / 3130 3990 / 3990 240 / 240 Output Total 1900 / 1900 2800 / 2800 Balance 990 / 1230 1190 / 1190 240 / 240 Lab / Micro Data Result Diagrams: 07/28/20 05:05 07/28/20 05:05 Labs: Laboratory Results - last 24 hr 07/27/20 07/28/20 07/28/20 14:10 05:05 05:05 WBC 7.3 RBC 4.54 Hgb 12.7 Hct 39.1 MCV 86.1 MCH 28.0 MCHC 32.5 RDW Std Deviation 44.2 H RDW Coeff of [place] 14.0 Plt Count 293 MPV 9.8 Immature Gran % (Auto) 2.300 H Neut % (Auto) 65.2 Lymph % (Auto) 22.1 [place] % (Auto) 10.1 H Eos % (Auto) 0.0 Baso % (Auto) 0.3 Absolute Neuts (auto) 4.8 Absolute Lymphs (auto) 1.62 Nucleated RBC % 0 Sodium 142 Potassium 3.9 Chloride 109 H Carbon Dioxide 26.0 Anion Gap 7 BUN 11 Creatinine 0.68 Estim Creat Clear Calc 130.91 Est GFR (MDRD) Af Amer 138 Est GFR (MDRD) Non-Af 114 BUN/Creatinine Ratio 16.2 Glucose 123 H Calcium 8.2 L Total Bilirubin 0.30 AST 38 H ALT 64 H Alkaline Phosphatase 67 Total Protein 6.4 Albumin 2.7 L Globulin 3.7 Albumin/Globulin Ratio 0.7 L MRSA (PCR) Negative Micro: Microbiology 07/25/20 19:20 Sputum, Expectorated/Coughed Gram Stain - Final 07/25/20 19:20 Sputum, Expectorated/Coughed Respiratory Culture - Preliminary Staphylococcus aureus 07/24/20 15:00 Urine, Clean Catch Urine Culture - Final Mixed Gram Positive Organisms 07/24/20 05:50 Blood Culture (Wb) - Anticubital Left Blood Culture - Prel iminary No growth in 48 hours. 07/24/20 15:00 Urine, Clean Catch Legionella Antigen - Final 07/24/20 15:00 Urine, Clean Catch Streptococcus pneumoniae Antigen (M - Final 07/24/20 07:55 Mucosa - Nose Respiratory Panel (PCR) - Final Physical Exam Const alert, oriented x3 and no apparent distress Constitutional Narrative: Currently tolerating heated high flow oxygen. General Appearance: cooperative, comfortable and well developed; Negative for ill appearing Orientation / Consciousness: awake HEENT normocephalic, head/scalp atraumatic and moist oral mucous membranes Eyes PERRL, EOMs intact bilaterally and conjunctivae normal Chest inspection of chest normal Resp normal respiratory effort Effort and Inspection: tachypneic Auscultation: diminished lung sounds; Negative for rales, rhonchi or wheezes Cardio regular rate, regular rhythm, S1 normal heart sound and S2 normal heart sound Rate: bradycardia GI normal to inspection, nondistended, normoactive bowel sounds Extremity no clubbing, cyanosis or edema Skin no rashes or lesions noted Neuro oriented x3, CN's II-XII intact bilaterally, moves all extremities and no focal motor deficits Psych cooperative and affect normal Appearance: well kempt Mood & Affect: anxious Assessment & Plan Assessment/Plan (1) Acute respiratory failure with hypoxia: (2) Pneumonia due to COVID-19 virus: (3) COVID-19: PLAN: RECOMMENDATIONS: 1. Wean supplemental oxygen to maintain saturations at or above 90%. 2. Continue remdesivir. Monitor liver and renal function accordingly. 3. Continue Decadron to complete 10-day treatment course. 4. Continue twice daily Lovenox. 5. Continue baseline anxiolytics. 6. Encourage incentive spirometer use and mobilize patient as tolerated. 7. Obtain UA IMPRESSIONS: 1. Acute hypoxemic respiratory failure secondary to COVID-19 pneumonia The patient was admitted to the hospital with an approximate 6-day course of Covid symptoms having tested positive at a local [facility] pharmacy. CTA chest revealed significant bilateral consolidative and groundglass changes without evidence for PE. The patient was subsequently placed on remdesivir and Decadron. We will continue to monitor liver and renal function accordingly. Continue to wean oxygen to maintain saturations at or above 90%. Continue Lovenox twice daily as ordered. Patient appears to be progressing per expectation. 2. Anxiety/depression Complicates care, management, recovery and prognosis. Continue home medications as indicated. 3. Concern for UTI Patient voicing concerns to UTI. Some concerns that patient may have fungal irritation given high-dose steroids. Will obtain a UA prior to initiation of antibiotics. Visit Charges Inpatient E&M: 01635 [facility] Hosp L3
[2020-07-28] MEDS: dexAMETHasone 4 MG Tablet 6 MG PO (08:46)
[2020-07-28] MEDS: ALPRAZolam 0.25 MG Tablet PO (08:46)
[2020-07-28] MEDS: Sertraline 50 MG Tablet 25 MG PO (08:46)
[2020-07-28] MEDS: Famotidine 20 MG Tablet PO ×2 (08:47→22:10)
[2020-07-28] MEDS: APIXABAN 2.5 MG TABLET PO ×2 (08:47→22:10)
--- NOTE | 2020-07-28 11:50 | PN.HOSP_ITS ---
Subjective Subjective: Breathing well on Airvo. Overall, feeling better. Objective Data Objective Data Vital Signs: Vital Signs Temp Pulse Resp BP Pulse Ox 36.6 C 67 18 112/58 L 94 07/28/20 09:00 07/28/20 09:00 07/28/20 09:00 07/28/20 09:00 07/28/20 09:00 Oxygen Flow Rate (L/min) [At 8 REST with Oxygen] Oxygen Flow Rate (L/min) [ 5 AMBULATING with Oxygen #1] Oxygen Flow Rate (L/min) 50 Oxygen Delivery Method Airvo Weight: 108 kg Body Mass Index (BMI) 36.2 Intake & Output: Intake and Output for Last 24 Hours 07/26/20 07/27/20 07/28/20 23:59 23:59 23:59 Intake Total 2890 / 3130 3990 / 3990 240 / 240 Output Total 1900 / 1900 2800 / 2800 Balance 990 / 1230 1190 / 1190 240 / 240 Lab / Micro Data Result Diagrams: 07/28/20 05:05 07/28/20 05:05 Labs: Laboratory Results - last 24 hr 07/27/20 07/28/20 07/28/20 14:10 05:05 05:05 WBC 7.3 RBC 4.54 Hgb 12.7 Hct 39.1 MCV 86.1 MCH 28.0 MCHC 32.5 RDW Std Deviation 44.2 H RDW Coeff of [place] 14.0 Plt Count 293 MPV 9.8 Immature Gran % (Auto) 2.300 H Neut % (Auto) 65.2 Lymph % (Auto) 22.1 [place] % (Auto) 10.1 H Eos % (Auto) 0.0 Baso % (Auto) 0.3 Absolute Neuts (auto) 4.8 Absolute Lymphs (auto) 1.62 Nucleated RBC % 0 Sodium 142 Potassium 3.9 Chloride 109 H Carbon Dioxide 26.0 Anion Gap 7 BUN 11 Creatinine 0.68 Estim Creat Clear Calc 130.91 Est GFR (MDRD) Af Amer 138 Est GFR (MDRD) Non-Af 114 BUN/Creatinine Ratio 16.2 Glucose 123 H Calcium 8.2 L Total Bilirubin 0.30 AST 38 H ALT 64 H Alkaline Phosphatase 67 Total Protein 6.4 Albumin 2.7 L Globulin 3.7 Albumin/Globulin Ratio 0.7 L MRSA (PCR) Negative Micro: Microbiology 07/25/20 19:20 Sputum, Expectorated/Coughed Gram Stain - Final 07/25/20 19:20 Sputum, Expectorated/Coughed Respiratory Culture - Final Staphylococcus aureus 07/24/20 15:00 Urine, Clean Catch Urine Culture - Final Mixed Gram Positive Organisms 07/24/20 05:50 Blood Culture (Wb) - Anticubital Left Blood Culture - Preliminary No growth in 48 hours. 07/24/20 15:00 Urine, Clean Catch Legionella Antigen - Final 07/24/20 15:00 Urine, Clean Catch Streptococcus pneumoniae Antigen (M - Final 07/24/20 07:55 Mucosa - Nose Respiratory Panel (PCR) - Final Physical Exam Const alert and oriented x3 Exam Limitations: no limitations and altered mental status HEENT Head and Scalp: normocephalic Eyes PERRL Resp normal respiratory effort and no use of accessory muscles Cardio regular rate, regular rhythm, S1 normal heart sound and S2 normal heart sound GI normal to inspection, nondistended, normoactive bowel sounds, non-tender and non-distended Extremity normal to inspection Assessment & Plan Assessment/Plan (1) Severe sepsis: (2) Acute respiratory failure with hypoxia: (3) Pneumonia due to COVID-19 virus: (4) Anxiety and depression: (5) Obesity (BMI 30-39.9): PLAN: The patient is a 24 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 1. Acute Severe Sepsis secondary to Acute Hypoxic Respiratory Failure secondary to Acute Bilateral Pneumonia secondary to Acute Viral Syndrome, COVID-19: * CTPA upon presentation w/ no evidence of PE, multifocal pneumonia consistent with Covid pneumonia, mild to moderate splenomegaly. * Patient admitted to the ICU given severe sepsis status, maintained on COVID precautions, transitioned to airvo from [place] following admission and has had continuous elevated needs, 07/26/20 up to 85% with 40 L/min, PRN albuterol, HOB, IS parameters w/ requested sputum cultures, respiratory viral panel negative, urine antigens negative, initial lactic acid 2.1 with improvement to 1.9, ferritin 304, LDH 398, troponin less than 0.015, CRP 87.10, BNP less than 2, procalcitonin 0.12, continue supportive care including q 2 hour turning including prone given no prone bed availability and judicious hydration, cl osely monitor for worsening status for ARDS and multiorgan failure, ongoing consultation with Infectious disease and Pulm/CC, * initiated and continue IV decadron x 10 doses and IV remdesivir * I am concerned for 2ndary pneumonia in [place]. SCx + for MSSA. Start cefazolin 2. Incidentally noted splenomegaly: CT with noted evidence splenomegaly, likely related with #1, may need to implement precautions at her discharge although no contact sports history. 3. Hypokalemia: resolved. Admission K+ 3.4, magnesium level obtained and noted to be 2.1, supplementation given, 07/27/20 K 3.8. 4. Hyperglycemia: Admission glucose 125, suspect at admission stress response, 07/27/20 Glucose 127, possibly also now steroid associated increase. 5. Elevated LFTs: Likely secondary to #1, admission AST/ALT 72/48-> 07/27/2020 AST/ALT 49/52. 6. Anxiety and Depression: Continued home sertraline and xanax regimen cautiously. Given notable anxiety affecting #1 presentation, added low dose PRN ativan as well but has appeared more relaxed upon evaluation 07/27/20. 7. DVT Prophylaxis: SCDs, lovenox. Visit Charges Inpatient E&M: 92204 Subs Hosp L2
--- NOTE | 2020-07-28 14:28 | PCM.PN.ID ---
Physical Exam Narrative Breathing better, no fever, no n/v/d. Resp Auscultation: diminished lung sounds Cardio regular rate and regular rhythm GI normal to inspection, nondistended, normoactive bowel sounds Skin no rashes or lesions noted ID ID: Route of nutrition/ use of supplements: [] Nutritional Intake: [] IV Site: [] Ocasio Catheter: [] Assessment & Plan Assessment/Plan (1) COVID-19: PLAN: covid with hypoxia - sx started 07/19, not previously vaccinated. On dex. Completed remdesivir. On apixaban. D-dimer elevated, CT showed no PE. Quarantine for 20 days until 08/08. Recommend covid shot once she is out of quarantine. Sx improved, still on high O2. Sputum now with mssa, cefazolin ordered to start. Will follow (2) Acute respiratory failure with hypoxia:
[2020-07-28] MEDS: Cefazolin 2 GM in 0.9% Normal Saline 100 ML IV ×2 (16:12→22:10)
[2020-07-28] MEDS: Acetaminophen 325 MG Tablet 650 MG PO (16:13)
[2020-07-29] VITALS (10 sets, daily range): BP systolic 104–119; BP diastolic 49–73; PULSE 43–70; RESP 18–19; TEMP 36.5–37; O2SAT 90–95
[2020-07-29] MEDS: Cefazolin 2 GM in 0.9% Normal Saline 100 ML IV ×3 (04:24→20:28)
[2020-07-29 04:27] LABS: Absolute Neutrophil Count 6.7 X10^3/uL (2.0-7.7); Basophil# 0.04 X10^3/uL; Basophil% 0.4 % (0-1); Eosinophil# 0.01 X10^3/uL; Eosinophils% 0.1 % (0-5); Hematocrit 38.7 % (37-47); Hemoglobin 12.7 g/dL (12.0-15.0); Lymphocyte % 19.7 % (19-41); Mean Corp Hgb Conc 32.8 g/dL (32-36); Mean Corpuscular Hgb 28.2 pg (27.0-32.0); Mean Corpuscular Volume 85.8 fL (81-99); Monocyte% 7.2 % (0-10); NRBC Flagged by Analyzer 0 % (0-5); Neutrophil # 6.67 X10^3/uL (2.7-7.7); Neutrophil % 69.1 % (47-70); Platelet Count 293 K/mm3 (150-450); RBC Distribution Width CV 13.8 % (11.6-14.6); RBC Distribution Width SD 43.3 fl (35.1-43.9); Red Blood Count 4.51 M/mm3 (4.2-5.4); White Blood Count 9.7 K/mm3 (4.4-11.0)
[2020-07-29] MEDS: Ondansetron 4 MG/2 ML Vial IV (04:36)
[2020-07-29] MEDS: LORazepam 2 MG/ML Syringe 0.5 MG IV (04:37)
[2020-07-29 04:43] LABS: ALB/GLOB Ratio 0.7 RATIO (0.9-2.4); AST(SGOT) 18 U/L (15-37); Alanine Aminotransfer ALT/SGPT 48 U/L (13-56); Albumin, Serum 2.5 g/dL (3.2-5.0); Alkaline Phosphatase 65 U/L (45-117); Anion Gap 5 (5-15); BUN 10 mg/dL (7-18); BUN/Creat Ratio 17.2 RATIO (10-20); Calcium,Total 8.1 mg/dL (8.5-10.1); Chloride 110 mmol/L (98-107); Creatinine, Serum 0.58 mg/dL (0.55-1.02); EST Glomerular Filtration Rate 137 mL/min (>60); Est Glom Filt Rate - Afr Amer 166 mL/min (>60); Estimated Creatinine Clearance 153.48 ml/min; Globulin 3.6 g/dL (2.2-4.2); Glucose 151 mg/dL (74-106); Protein, Total 6.1 g/dL (6.4-8.2); Sodium Level 141 mmol/L (136-145)
--- NOTE | 2020-07-29 06:29 | PN.CC_ITS ---
Subjective Subjective: Patient did well overnight. No acute issues were reported. Patient was able to be weaned to 6 L nasal cannula. Patient reports her dysuria is improving without intervention. Objective Data Objective Data Vital Signs: Vital Signs Temp Pulse Resp BP Pulse Ox 36.6 C 70 18 113/68 91 07/29/20 03:00 07/29/20 04:19 07/29/20 03:00 07/29/20 03:00 07/29/20 03:00 Oxygen Flow Rate (L/min) [At 8 REST with Oxygen] Oxygen Flow Rate (L/min) [ 5 AMBULATING with Oxygen #1] Oxygen Flow Rate (L/min) 6 Oxygen Delivery Method Nasal Cannula Weight: 106.6 kg Body Mass Index (BMI) 36.2 Intake & Output: Intake and Output for Last 24 Hours 07/27/20 07/28/20 07/29/20 23:59 23:59 23:59 Intake Total 3990 / 3990 2410 / 2410 610 / 610 Output Total 2800 / 2800 1974 / 1974 Balance 1190 / 1190 435 / 435 610 / 610 Lab / Micro Data Result Diagrams: 07/29/20 04:20 07/29/20 04:20 Labs: Laboratory Results - last 24 hr 07/29/20 07/29/20 04:20 04:20 WBC 9.7 RBC 4.51 Hgb 12.7 Hct 38.7 MCV 85.8 MCH 28.2 MCHC 32.8 RDW Std Deviation 43.3 RDW Coeff of Brandon 13.8 Plt Count 293 MPV 10.0 Immature Gran % (Auto) 3.500 H Neut % (Auto) 69.1 Lymph % (Auto) 19.7 Gulf % (Auto) 7.2 Eos % (Auto) 0.1 Baso % (Auto) 0.4 Absolute Neuts (auto) 6.7 Absolute Lymphs (auto) 1.90 Nucleated RBC % 0 Sodium 141 Potassium 4.0 Chloride 110 H Carbon Dioxide 26.0 Anion Gap 5 BUN 10 Creatinine 0.58 Estim Creat Clear Calc 153.48 Est GFR (MDRD) Af Amer 166 Est GFR (MDRD) Non-Af 137 BUN/Creatinine Ratio 17.2 Glucose 151 H Calcium 8.1 L Total Bilirubin 0.20 AST 18 ALT 48 Alkaline Phosphatase 65 Total Protein 6.1 L Albumin 2.5 L Globulin 3.6 Albumin/Globulin Ratio 0.7 L Micro: Microbiology 07/25/20 19:20 Sputum, Expectorated/Coughed Gram Stain - Final 07/25/20 19:20 Sputum, Expectorated/Coughed Respiratory Culture - Final Staphylococcus aureus 07/24/20 15:00 Urine, Clean Catch Urine Culture - Final Mixed Gram Positive Organisms 07/24/20 05:50 Blood Culture (Wb) - Anticubital Left Blood Culture - Preliminary No growth in 48 hours. 07/24/20 15:00 Urine, Clean Catch Legionella Antigen - Final 07/24/20 15:00 Urine, Clean Catch Streptococcus pneumoniae Antigen (M - Final 07/24/20 07:55 Mucosa - Nose Respiratory Panel (PCR) - Final Physical Exam Const alert, oriented x3 and no apparent distress Constitutional Narrative: Currently tolerating low flow oxygen. General Appearance: cooperative, comfortable and well developed; Negative for ill appearing Orientation / Consciousness: awake HEENT normocephalic, head/scalp atraumatic and moist oral mucous membranes Eyes PERRL, EOMs intact bilaterally and conjunctivae normal Chest inspection of chest normal Resp normal respiratory effort Auscultation: diminished lung sounds; Negative for rales, rhonchi or wheezes Cardio regular rate, regular rhythm, S1 normal heart sound and S2 normal heart sound Rate: bradycardia GI normal to inspection, nondistended, normoactive bowel sounds Extremity no clubbing, cyanosis or edema Skin no rashes or lesions noted Neuro oriented x3, CN's II-XII intact bilaterally, moves all extremities and no focal motor deficits Psych cooperative and affect normal Appearance: well kempt Mood & Affect: anxious Assessment & Plan Assessment/Plan (1) Acute respiratory failure with hypoxia: (2) Pneumonia due to COVID-19 virus: (3) COVID-19: PLAN: RECOMMENDATIONS: 1. Wean supplemental oxygen to maintain saturations at or above 90%. 2. Continue remdesivir to complete a 5-day course. Monitor liver and renal function accordingly. 3. Continue Decadron to complete 10-day treatment course. 4. Continue twice daily Lovenox. 5. Continue baseline anxiolytics. 6. Encourage incentive spirometer use and mobilize patient as tolerated. 7. Potential walking oximetry if tolerating 4 L nasal cannula or less 8. Anticipate follow-up with pulmonary 4 to 6 weeks after discharge IMPRESSIONS: 1. Acute hypoxemic respiratory failure secondary to COVID-19 pneumonia The patient was admitted to the hospital with an approximate 6-day course of Covid symptoms having tested positive at a local [facility] pharmacy. CTA chest revealed significant bilateral consolidative and groundglass changes without evidence for PE. The patient was subsequently placed on remdesivir and Decadron. We will continue to monitor liver and renal function accordingly. C ontinue to wean oxygen to maintain saturations at or above 90%. Continue Lovenox twice daily as ordered. Patient appears to be progressing per expectation. If able to tolerate 4 L nasal cannula or less through the day, walking oximetry can be obtained. If patient can tolerate ambulation on 6 L or less, discharge could be considered. Patient would likely follow-up in 4 to 6 weeks with pulmonary for cessation of oxygen and evaluation of pulmonary function testing. 2. Anxiety/depression Complicates care, management, recovery and prognosis. Continue home medications as indicated. 3. Concern for UTI Patient voicing concerns to UTI. Some concerns that patient may have fungal irritation given high-dose steroids. Will obtain a UA prior to initiation of antibiotics. Visit Charges Inpatient E&M: 53644 Subs Hosp L2
[2020-07-29] MEDS: Famotidine 20 MG Tablet PO ×2 (09:00→20:29)
[2020-07-29] MEDS: ALPRAZolam 0.25 MG Tablet PO (09:00)
[2020-07-29] MEDS: APIXABAN 2.5 MG TABLET PO ×2 (09:00→20:29)
[2020-07-29] MEDS: Sertraline 50 MG Tablet 25 MG PO (09:00)
[2020-07-29] MEDS: dexAMETHasone 4 MG Tablet 6 MG PO (09:00)
[2020-07-29] MEDS: Acetaminophen 325 MG Tablet 650 MG PO ×2 (15:27→20:29)
--- NOTE | 2020-07-29 15:51 | PN.HOSP_ITS ---
Subjective Subjective feeling better. oxygen able to be weaned down, however, becomes hypoxic with minimal ambulation. Objective Data Objective Data Vital Signs: Vital Signs Temp Pulse Resp BP Pulse Ox 36.5 C L 56 L 19 H 104/49 L 95 07/29/20 15:00 07/29/20 15:00 07/29/20 15:00 07/29/20 15:00 07/29/20 15:00 Oxygen Flow Rate (L/min) [At 8 REST with Oxygen] Oxygen Flow Rate (L/min) [ 5 AMBULATING with Oxygen #1] Oxygen Flow Rate (L/min) 5 Oxygen Delivery Method Nasal Cannula Weight: 106.6 kg Body Mass Index (BMI) 36.2 Intake & Output: Intake and Output for Last 24 Hours 07/27/20 07/28/20 07/29/20 23:59 23:59 23:59 Intake Total 3990 / 3990 2410 / 2410 720 / 720 Output Total 2800 / 2800 1974 / 1974 Balance 1190 / 1190 435 / 435 720 / 720 Lab / Micro Data Result Diagrams: 07/29/20 04:20 07/29/20 04:20 Labs: Laboratory Results - last 24 hr 07/29/20 07/29/20 04:20 04:20 WBC 9.7 RBC 4.51 Hgb 12.7 Hct 38.7 MCV 85.8 MCH 28.2 MCHC 32.8 RDW Std Deviation 43.3 RDW Coeff of Brandon 13.8 Plt Count 293 MPV 10.0 Immature Gran % (Auto) 3.500 H Neut % (Auto) 69.1 Lymph % (Auto) 19.7 Caroline % (Auto) 7.2 Eos % (Auto) 0.1 Baso % (Auto) 0.4 Absolute Neuts (auto) 6.7 Absolute Lymphs (auto) 1.90 Nucleated RBC % 0 Sodium 141 Potassium 4.0 Chloride 110 H Carbon Dioxide 26.0 Anion Gap 5 BUN 10 Creatinine 0.58 Estim Creat Clear Calc 153.48 Est GFR (MDRD) Af Amer 166 Est GFR (MDRD) Non-Af 137 BUN/Creatinine Ratio 17.2 Glucose 151 H Calcium 8.1 L Total Bilirubin 0.20 AST 18 ALT 48 Alkaline Phosphatase 65 Total Protein 6.1 L Albumin 2.5 L Globulin 3.6 Albumin/Globulin Ratio 0.7 L Micro: Microbiology 07/28/20 08:30 Urine, Clean Catch Urine Culture - Preliminary Presumptive E. coli 07/24/20 05:50 Blood Culture (Wb) - Anticubital Left Blood Culture - Final No growth in 5 days. 07/25/20 19:20 Sputum, Expectorated/Coughed Gram Stain - Final 07/25/20 19:20 Sputum, Expectorated/Coughed Respiratory Culture - Final Staphylococcus aureus 07/24/20 15:00 Urine, Clean Catch Urine Culture - Final Mixed Gram Positive Organisms 07/24/20 15:00 Urine, Clean Catch Legionella Antigen - Final 07/24/20 15:00 Urine, Clean Catch Streptococcus pneumoniae Antigen (M - Final 07/24/20 07:55 Mucosa - Nose Respiratory Panel (PCR) - Final Physical Exam Const alert and oriented x3 HEENT Head and Scalp: normocephalic Resp normal respiratory effort and clear to auscultation bilaterally Cardio regular rate, regular rhythm, S1 normal heart sound and S2 normal heart sound GI normal to inspection, nondistended, normoactive bowel sounds, soft to palpation, non-tender and non-distended Extremity normal to inspection Neuro oriented x3 Sensorium / Orientation: awake and alert Psych affect normal Assessment & Plan Assessment/Plan (1) Severe sepsis: (2) Acute respiratory failure with hypoxia: (3) Pneumonia due to COVID-19 virus: (4) Anxiety and depression: (5) Obesity (BMI 30-39.9): PLAN: 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 ED on 07/24/20 with history of recent onset COVID type symptoms x 6 days starting this past Tuesday with cough, fatigue, low grade T, malaise, dyspnea, nausea, emesis, abdominal cramping with loose stools, decreased sense of taste/smell, frontal mild headaches, body aches, progressively worsening with positive testing [facility]. 1. Acute Severe Sepsis secondary to Acute Hypoxic Respiratory Failure secondary to Acute Bilateral Pneumonia secondary to Acute Viral Syndrome, COVID-19: * CTPA upon presentation w/ no evidence of PE, multifocal pneumonia consistent with Covid pneumonia, mild to moderate splenomegaly. * Patient admitted to the ICU given severe sepsis status, maintained on COVID precautions, transitioned to airvo from [place] following admission and has had continuous elevated needs, 07/26/20 up to 85% with 40 L/min, PRN albuterol, HOB, IS parameters w/ requested sputum cultures, respiratory viral panel negative, urine antigens negative, initial lactic acid 2.1 with improvement to 1.9, ferritin 304, LDH 398, troponin less than 0.015, CRP 87.10, BNP less than 2, procalcitonin 0.12, continue supportive care including q 2 hour turning including prone given no prone bed availability and judicious hydration, closely monitor for worsening status for ARDS and multiorgan failure, ongoing consultation with Infectious disease and Pulm/CC, * initiated and continue IV decadron x 10 doses and IV remdesivir * I am concerned for 2ndary pneumonia in [place]. SCx + for MSSA. Start cefazolin * Improving. Add chest physiotherapy. * Hypoxic w minimal movement, so showers and ambulatory pulse oximetry not practical at this time. 2. Incidentally noted splenomegaly: CT with noted evidence splenomegaly, likely related with #1, may need to implement precautions at her discharge although no contact sports history. 3. Hypokalemia: resolved. Admission K+ 3.4, magnesium level obtained and noted to be 2.1, supplementation given, 07/27/20 K 3.8. 4. Hyperglycemia: Admission glucose 125, suspect at admission stress response, 07/27/20 Glucose 127, possibly also now steroid associated increase. 5. Elevated LFTs: Likely secondary to #1, admission AST/ALT 72/48-> 07/27/2020 AST/ALT 49/52. 6. Anxiety and Depression: Continued home sertraline and xanax regimen cautiously. Given notable anxiety affecting #1 presentation, added low dose PRN ativan as well but has appeared more relaxed upon evaluation 07/27/20. 7. DVT Prophylaxis: SCDs, lovenox. Visit Charges Inpatient E&M: 61118 Subs Hosp L2
[2020-07-29] MEDS: Docusate Sodium 100 MG Capsule PO (17:16)
[2020-07-29] MEDS: 0.9% Saline Lock 10 ML Syringe IV (20:34)
[2020-07-29] MEDS: guaiFENesin 10 ML UDC (200MG/10ML) PO (20:36)
[2020-07-29] MEDS: BENZOCAINE/MENTHOL 1 LOZENGE MUCOUS MEM (21:42)
[2020-07-30] VITALS (13 sets, daily range): BP systolic 81–121; BP diastolic 37–73; PULSE 41–72; RESP 16–22; TEMP 36.6–36.8; O2SAT 88–97
[2020-07-30 05:01] LABS: Hematocrit 41.9 % (37-47); Hemoglobin 13.5 g/dL (12.0-15.0); Mean Corp Hgb Conc 32.2 g/dL (32-36); Mean Corpuscular Hgb 27.7 pg (27.0-32.0); Mean Corpuscular Volume 85.9 fL (81-99); Mean Platelet Vol. 10.4 fl (6.2-12.0); POSITIVE COUNT YES; POSITIVE MORPHOLOGY YES; Platelet Count 326 K/mm3 (150-450); RBC Distribution Width SD 43.8 fl (35.1-43.9); Red Blood Count 4.88 M/mm3 (4.2-5.4)
[2020-07-30 05:04] LABS: Differential Indicated MANUAL DIFF
[2020-07-30 05:08] LABS: Anion Gap 5 (5-15); BUN 11 mg/dL (7-18); BUN/Creat Ratio 18.4 RATIO (10-20); Calcium,Total 8.5 mg/dL (8.5-10.1); Chloride 108 mmol/L (98-107); EST Glomerular Filtration Rate 132 mL/min (>60); Est Glom Filt Rate - Afr Amer 160 mL/min (>60); Estimated Creatinine Clearance 148.36 ml/min; Glucose 130 mg/dL (74-106); Potassium 4.1 mmol/L (3.5-5.1); Sodium Level 139 mmol/L (136-145)
[2020-07-30 05:19] LABS: Total Cells Counted 100 (MANUAL DIFF)
[2020-07-30 05:24] LABS: Differential Comment SCANNED; Lymphocyte 17 % (19-41); Metamyelocyte 2 % (0-1); Monocyte 5 % (0-10); Myelocyte 2 % (0-0); Neutrophil-Segmented 74 % (47-70)
[2020-07-30 05:25] LABS: Atypical Lymphocyte 1+ %; Platelet Estimate ADEQUATE (ADEQ); Red Cell Morphology NORM C+C NORMAL (NORM C&C)
[2020-07-30 05:26] LABS: Absolute Neutrophil Count 8.2 X10^3/uL (2.0-7.7)
[2020-07-30 05:27] LABS: Absolute Lymphocyte Count 1.87 X10^3/uL (0.83-4.51); Lymphocyte # 1.87 X10^3/ul (0.83-4.51)
[2020-07-30] MEDS: Cefazolin 2 GM in 0.9% Normal Saline 100 ML IV ×3 (05:40→21:35)
--- NOTE | 2020-07-30 07:05 | PN.CC_ITS ---
Subjective Subjective Patient did well overnight. No acute issues were reported. Patient has been maintaining on 5 L nasal cannula. Patient is not reporting any chest pain. Patient does report some continued dysuria. Patient states she has had difficulty tolerating amoxicillin in the past. Objective Data Objective Data Vital Signs: Vital Signs Temp Pulse Resp BP Pulse Ox 36.6 C 41 L 18 121/73 H 95 07/30/20 03:00 07/30/20 04:00 07/30/20 03:00 07/30/20 03:00 07/30/20 03:00 Oxygen Flow Rate (L/min) [At 8 REST with Oxygen] Oxygen Flow Rate (L/min) [ 5 AMBULATING with Oxygen #1] Oxygen Flow Rate (L/min) 5 Oxygen Delivery Method Nasal Cannula Weight: 105.9 kg Body Mass Index (BMI) 36.2 Intake & Output: Intake and Output for Last 24 Hours 07/28/20 07/29/20 07/30/20 23:59 23:59 23:59 Intake Total 2410 / 2410 830 / 830 110 / 110 Output Total 1974 / 1974 Balance 435 / 435 830 / 830 110 / 110 Lab / Micro Data Result Diagrams: 07/30/20 03:35 07/30/20 03:35 Labs: Laboratory Results - last 24 hr 07/30/20 07/30/20 03:35 03:35 WBC 11.0 RBC 4.88 Hgb 13.5 Hct 41.9 MCV 85.9 MCH 27.7 MCHC 32.2 RDW Std Deviation 43.8 RDW Coeff of Brandon 14.0 Plt Count 326 MPV 10.4 Neut % (Auto) Not Reportable Absolute Neuts (auto) 8.2 H Absolute Lymphs (auto) 1.87 Total Counted 100 Neutrophils % (Manual) 74 H Lymphocytes % (Manual) 17 L Monocytes % (Manual) 5 Metamyelocytes % 2 H Myelocytes % 2 H Differential Comment SCANNED Diff Path Review May foll Atypical Lymphocytes 1+ Platelet Estimate ADEQUATE RBC Morphology NORM C+C Sodium 139 Potassium 4.1 Chloride 108 H Carbon Dioxide 26.0 Anion Gap 5 BUN 11 Creatinine 0.60 Estim Creat Clear Calc 148.36 Est GFR (MDRD) Af Amer 160 Est GFR (MDRD) Non-Af 132 BUN/Creatinine Ratio 18.4 Glucose 130 H Calcium 8.5 Micro: Microbiology 07/28/20 08:30 Urine, Clean Catch Urine Culture - Preliminary Presumptive E. coli 07/24/20 05:50 Blood Culture (Wb) - Anticubital Left Blood Culture - Final No growth in 5 days. 07/25/20 19:20 Sputum, Expectorated/Coughed Gram Stain - Final 07/25/20 19:20 Sputum, Expectorated/Coughed Respiratory Culture - Final Staphylococcus aureus 07/24/20 15:00 Urine, Clean Catch Urine Culture - Final Mixed Gram Positive Organisms 07/24/20 15:00 Urine, Clean Catch Legionella Antigen - Final 07/24/20 15:00 Urine, Clean Catch Streptococcus pneumoniae Antigen (M - Final 07/24/20 07:55 Mucosa - Nose Respiratory Panel (PCR) - Final Physical Exam Const alert, oriented x3 and no apparent distress General Appearance: cooperative, comfortable and well developed; Negative for ill appearing Orientation / Consciousness: awake HEENT normocephalic, head/scalp atraumatic and moist oral mucous membranes Eyes PERRL, EOMs intact bilaterally and conjunctivae normal Chest inspection of chest normal Resp normal respiratory effort Effort and Inspection: tachypneic Auscultation: diminished lung sounds; Negative for rales, rhonchi or wheezes Cardio regular rate, regular rhythm, S1 normal heart sound and S2 normal heart sound Rate: bradycardia GI normal to inspection, nondistended, normoactive bowel sounds Extremity no clubbing, cyanosis or edema Skin no rashes or lesions noted Neuro oriented x3, CN's II-XII intact bilaterally, moves all extremities and no focal motor deficits Psych cooperative and affect normal Appearance: well kempt Mood & Affect: anxious Assessment & Plan Assessment/Plan (1) Acute respiratory failure with hypoxia: (2) Pneumonia due to COVID-19 virus: (3) COVID-19: (4) UTI (urinary tract infection), uncomplicated: PLAN: RECOMMENDATIONS: 1. Wean supplemental oxygen to maintain saturations at or above 90%. 2. Completed remdesivir. Anticipate 10 days of Decadron 3. 3-day course of ciprofloxacin secondary to uncomplicated UTI 4. Continue twice daily Lovenox. 5. Continue baseline anxiolytics. 6. Encourage incentive spirometer use and mobilize patient as tolerated. 7. Potential walking oximetry if tolerating 4 L nasal cannula or less 8. Anticipate follow-up with pulmonary 4 to 6 weeks after discharge IMPRESSIONS: 1. Acute hypoxemic respiratory failure secondary to COVID-19 pneumonia The patient was admitted to the hospital with an approximate 6-day course of Covid symptoms having tested positive at a local [facility] pharmacy. CTA chest revealed significant bilateral consolidative and groundglass changes without evidence for PE. The patient was subsequently placed on remdesivir and Decadron. We will continue to monitor liver and renal function accordingly. Continue to wean oxygen to maintain saturations at or above 90%. Continue Lovenox twice daily as ordered. Patient appears to be progressing per expectation. If able to tolerate 4 L nasal cannula or less through the day, walking oximetry can be obtained. If patient can tolerate ambulation on 6 L or less, discharge could be considered. Patient would likely follow-up in 4 to 6 weeks with pulmonary for cessation of oxygen and evaluation of pulmonary function testing. 2. Anxiety/depression Complicates care, management, recovery and prognosis. Continue home medications as indicated. 3. Concern for UTI UA was not suggestive of UTI, but patient is growing E. coli greater than 100,000. Given continued symptoms, will treat with 3 days of ciprofloxacin. Patient has not tolerated penicillin well in the past. Visit Charges Inpatient E&M: 76126 Subs Hosp L2
[2020-07-30] MEDS: APIXABAN 2.5 MG TABLET PO ×2 (10:35→21:35)
[2020-07-30] MEDS: Ciprofloxacin 500 MG Tablet PO (10:35)
[2020-07-30] MEDS: Sertraline 50 MG Tablet 25 MG PO (10:35)
[2020-07-30] MEDS: dexAMETHasone 4 MG Tablet 6 MG PO (10:36)
[2020-07-30] MEDS: ALPRAZolam 0.25 MG Tablet PO (10:36)
[2020-07-30] MEDS: Famotidine 20 MG Tablet PO ×2 (10:37→21:35)
[2020-07-30] MEDS: Docusate Sodium 100 MG Capsule PO (10:37)
[2020-07-30] MEDS: Acetaminophen 325 MG Tablet 650 MG PO ×2 (10:53→16:03)
[2020-07-30 12:52] LABS: Pathologist Review Reviewed
--- NOTE | 2020-07-30 13:31 | PCM.PN.ID ---
Physical Exam Narrative Feeling better, on RA now, no fever Const alert General Appearance: cooperative Resp clear to auscultation bilaterally Cardio regular rate and regular rhythm GI normal to inspection, nondistended, normoactive bowel sounds Skin no rashes or lesions noted ID ID: Route of nutrition/ use of supplements: [] Nutritional Intake: [] IV Site: [] Ocasio Catheter: [] Assessment & Plan Assessment/Plan (1) COVID-19: PLAN: covid with hypoxia - sx started 07/19, not previously vaccinated. On dex. Completed remdesivir. On apixaban. D-dimer elevated, CT showed no PE. Quarantine for 20 days until 08/08. Recommend covid shot once she is out of quarantine. Sx improved, sputum with mssa, ucx with ecoli. No need for cipro. Both organisms covered by cefazolin. Ok for home with 4 days of keflex 500mg tid. Will follow as needed. D/w Dr. Ring (2) Acute respiratory failure with hypoxia:
--- NOTE | 2020-07-30 13:46 | CASEMGMT ---
Social Work Phone call placed to pt to offer emotional support. Pt stating that she is improving and was told she can return home tomorrow. Pt thankful for this and states she will be going home with her parents at time of discharge. Pt denies any needs at this time and is aware SW is available should further needs arise. AHMET Sandhu
--- NOTE | 2020-07-30 14:18 | PN.HOSP_ITS ---
Subjective Subjective Breathing well. Overall feeling better. Objective Data Objective Data Vital Signs: Vital Signs Temp Pulse Resp BP Pulse Ox 36.6 C 68 20 H 94/40 L 93 07/30/20 09:00 07/30/20 09:00 07/30/20 09:00 07/30/20 09:00 07/30/20 09:00 Oxygen Flow Rate (L/min) [At 8 REST with Oxygen] Oxygen Flow Rate (L/min) [ 5 AMBULATING with Oxygen #1] Oxygen Flow Rate (L/min) 3 Oxygen Delivery Method Nasal Cannula Weight: 105.9 kg Body Mass Index (BMI) 36.2 Intake & Output: Intake and Output for Last 24 Hours 07/28/20 07/29/20 07/30/20 23:59 23:59 23:59 Intake Total 2410 / 2410 830 / 830 360 / 360 Output Total 1974 / 1974 Balance 435 / 435 830 / 830 360 / 360 Lab / Micro Data Result Diagrams: 07/30/20 03:35 07/30/20 03:35 Labs: Laboratory Results - last 24 hr 07/30/20 07/30/20 03:35 03:35 WBC 11.0 RBC 4.88 Hgb 13.5 Hct 41.9 MCV 85.9 MCH 27.7 MCHC 32.2 RDW Std Deviation 43.8 RDW Coeff of Brandon 14.0 Plt Count 326 MPV 10.4 Neut % (Auto) Not Reportable Absolute Neuts (auto) 8.2 H Absolute Lymphs (auto) 1.87 Total Counted 100 Neutrophils % (Manual) 74 H Lymphocytes % (Manual) 17 L Monocytes % (Manual) 5 Metamyelocytes % 2 H Myelocytes % 2 H Differential Comment SCANNED Diff Path Review Reviewed Atypical Lymphocytes 1+ Platelet Estimate ADEQUATE RBC Morphology NORM C+C Sodium 139 Potassium 4.1 Chloride 108 H Carbon Dioxide 26.0 Anion Gap 5 BUN 11 Creatinine 0.60 Estim Creat Clear Calc 148.36 Est GFR (MDRD) Af Amer 160 Est GFR (MDRD) Non-Af 132 BUN/Creatinine Ratio 18.4 Glucose 130 H Calcium 8.5 Micro: Microbiology 07/28/20 08:30 Urine, Clean Catch Urine Culture - Final Presumptive E. coli 07/24/20 05:50 Blood Culture (Wb) - Anticubital Left Blood Culture - Final No growth in 5 days. 07/25/20 19:20 Sputum, Expectorated/Coughed Gram Stain - Final 07/25/20 19:20 Sputum, Expectorated/Coughed Respiratory Culture - Final Staphylococcus aureus 07/24/20 15:00 Urine, Clean Catch Urine Culture - Final Mixed Gram Positive Organisms 07/24/20 15:00 Urine, Clean Catch Legionella Antigen - Final 07/24/20 15:00 Urine, Clean Catch Streptococcus pneumoniae Antigen (M - Final 07/24/20 07:55 Mucosa - Nose Respiratory Panel (PCR) - Final Physical Exam Const alert HEENT Head and Scalp: normocephalic Resp normal respiratory effort and clear to auscultation bilaterally Cardio regular rate, regular rhythm, S1 normal heart sound and S2 normal heart sound GI normal to inspection, nondistended, normoactive bowel sounds, non-tender and non-distended Neuro Sensorium / Orientation: awake Assessment & Plan Assessment/Plan (1) Severe sepsis: (2) Acute respiratory failure with hypoxia: (3) Pneumonia due to COVID-19 virus: (4) Anxiety and depression: (5) Obesity (BMI 30-39.9): PLAN: 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 1. Acute Severe Sepsis secondary to Acute Hypoxic Respiratory Failure secondary to Acute Bilateral Pneumonia secondary to Acute Viral Syndrome, COVID-19: * CTPA upon presentation w/ no evidence of PE, multifocal pneumonia consistent with Covid pneumonia, mild to moderate splenomegaly. * Patient admitted to the ICU given severe sepsis status, maintained on COVID precautions, transitioned to airvo from [place] following admission and has had continuous elevated needs, 07/26/20 up to 85% with 40 L/min, PRN albuterol, HOB, IS parameters w/ requested sputum cultures, respiratory viral panel negative, urine antigens negative, initial lactic acid 2.1 with improvement to 1.9, ferritin 304, LDH 398, troponin less than 0.015, CRP 87.10, BNP less than 2, procalcitonin 0.12, continue supportive care including q 2 hour turning including prone given no prone bed availability and judicious hydration, closely monitor for worsening status for ARDS and multiorgan failure, ongoing consultation with Infectious disease and Pulm/CC, * initiated and continue IV decadron x 10 doses and IV remdesivir * I am concerned for 2ndary pneumonia in [place]. SCx + for MSSA. Start cefazolin. Discussed with infectious disease, the E. coli in her urine is sensitive to cefazolin and he discontinue the ciprofloxacin. * Improving. Add chest physiotherapy. * Improving. On room air at rest but drops down to 88% with activity. Patient wishes to stay with her parents in [place]. Discussed with her that the logistics of getting oxygen set up for her first suspected short period of time may not be practical. Plan is to monitor her until she can ambulate short distances without becoming hypoxic and at that point time patient can be discharged to home with her family in [place]. 2. Incidentally noted splenomegaly: CT with noted evidence splenomegaly, likely related with #1, may need to implement precautions at her discharge although no contact sports history. 3. Hypokalemia: resolved. Admission K+ 3.4, magnesium level obtained and noted to be 2.1, supplementation given, 07/27/20 K 3.8. 4. Hyperglycemia: Admission glucose 125, suspect at admission stress response, 07/27/20 Glucose 127, possibly also now steroid associated increase. 5. Elevated LFTs: Likely secondary to #1, admission AST/ALT 72/48-> 07/27/2020 T/ALT 49/52. 6. Anxiety and Depression: Continued home sertraline and xanax regimen cautiously. Given notable anxiety affecting #1 presentation, added low dose PRN ativan as well but has appeared more relaxed upon evaluation 07/27/20. 7. DVT Prophylaxis: SCDs, lovenox. Visit Charges Inpatient E&M: 53219 Subs Hosp L2
[2020-07-30] MEDS: 0.9% Saline Lock 10 ML Syringe IV (15:42)
[2020-07-30] MEDS: Ondansetron 4 MG/2 ML Vial IV (15:45)
[2020-07-31 04:00] VITALS: PULSE 57
[2020-07-31 04:30] VITALS: BP 118/61; PULSE 58; RESP 20; TEMP 36.6; O2SAT 93
[2020-07-31] MEDS: Cefazolin 2 GM in 0.9% Normal Saline 100 ML IV (05:26)
[2020-07-31 07:19] VITALS: PULSE 43
--- NOTE | 2020-07-31 07:19 | PN.CC_ITS ---
Subjective Subjective Patient did well overnight. Patient's oxygen status has significantly improved over the last 24 hours. Patient is not reporting any chest pain. Objective Data Objective Data Vital Signs: Vital Signs Temp Pulse Resp BP Pulse Ox 36.6 C 58 L 20 H 118/61 93 07/31/20 04:30 07/31/20 04:30 07/31/20 04:30 07/31/20 04:30 07/31/20 04:30 Oxygen Flow Rate (L/min) [At 8 REST with Oxygen] Oxygen Flow Rate (L/min) [ 5 AMBULATING with Oxygen #1] Oxygen Flow Rate (L/min) 3 Oxygen Delivery Method Room Air Weight: 105.3 kg Body Mass Index (BMI) 36.2 Intake & Output: Intake and Output for Last 24 Hours 07/29/20 07/30/20 07/31/20 23:59 23:59 23:59 Intake Total 830 / 830 710 / 820 220 / 220 Balance 830 / 830 710 / 820 220 / 220 Lab / Micro Data Result Diagrams: 07/30/20 03:35 07/30/20 03:35 Labs: Laboratory Results - last 24 hr 07/30/20 03:35 Diff Path Review Reviewed Micro: Microbiology 07/28/20 08:30 Urine, Clean Catch Urine Culture - Final Presumptive E. coli 07/24/20 05:50 Blood Culture (Wb) - Anticubital Left Blood Culture - Final No growth in 5 days. 07/25/20 19:20 Sputum, Expectorated/Coughed Gram Stain - Final 07/25/20 19:20 Sputum, Expectorated/Coughed Respiratory Culture - Final Staphylococcus aureus 07/24/20 15:00 Urine, Clean Catch Urine Culture - Final Mixed Gram Positive Organisms 07/24/20 15:00 Urine, Clean Catch Legionella Antigen - Final 07/24/20 15:00 Urine, Clean Catch Streptococcus pneumoniae Antigen (M - Final 07/24/20 07:55 Mucosa - Nose Respiratory Panel (PCR) - Final Physical Exam Const alert, oriented x3 and no apparent distress General Appearance: cooperative, comfortable and well developed; Negative for ill appearing Orientation / Consciousness: awake HEENT normocephalic, head/scalp atraumatic and moist oral mucous membranes Eyes PERRL, EOMs intact bilaterally and conjunctivae normal Chest inspection of chest normal Resp normal respiratory effort Effort and Inspection: tachypneic Auscultation: diminished lung sounds; Negative for rales, rhonchi or wheezes Cardio regular rate, regular rhythm, S1 normal heart sound and S2 normal heart sound Rate: bradycardia GI normal to inspection, nondistended, normoactive bowel sounds Extremity no clubbing, cyanosis or edema Skin no rashes or lesions noted Neuro oriented x3, CN's II-XII intact bilaterally, moves all extremities and no focal motor deficits Psych cooperative and affect normal Appearance: well kempt Mood & Affect: anxious Assessment & Plan Assessment/Plan (1) Acute respiratory failure with hypoxia: (2) Pneumonia due to COVID-19 virus: (3) COVID-19: (4) UTI (urinary tract infection), uncomplicated: PLAN: RECOMMENDATIONS: 1. No supplemental oxygen would be indicated on discharge 2. Completed remdesivir. Anticipate 10 days of Decadron 3. 3-day course of ciprofloxacin secondary to uncomplicated UTI 4. Continue twice daily Lovenox. 5. Continue baseline anxiolytics. 6. Encourage incentive spirometer use and mobilize patient as tolerated. 7. Will sign off from a critical care perspective 8. Anticipate follow-up with pulmonary 4 to 6 weeks after discharge IMPRESSIONS: 1. Acute hypoxemic respiratory failure secondary to COVID-19 pneumonia The patient was admitted to the hospital with an approximate 6-day course of Covid symptoms having tested positive at a local [facility] pharmacy. CTA chest revealed significant bilateral consolidative and groundglass changes without evidence for PE. The patient was subsequently placed on remdesivir and Decadron. We will continue to monitor liver and renal function accordingly. Continue to wean oxygen to maintain saturations at or above 90%. Continue Lovenox twice daily as ordered. Patient appears to be progressing per expectation. If able to tolerate 4 L nasal cannula or less through the day, walking oximetry can be obtained. If patient can tolerate ambulation on 6 L or less, discharge could be considered. Patient would benefit from an outpatient pulmonary work-up given severity of hypoxemia related to COVID-19. 2. Anxiety/depression Complicates care, management, recovery and prognosis. Continue home medications as indicated. 3. Concern for UTI UA was not suggestive of UTI, but patient is growing E. coli greater than 100,000. Given continued symptoms, will treat with 3 days of ciprofloxacin. Patient has not tolerated penicillin well in the past. Visit Charges Inpatient E&M: 63949 Subs Hosp L2
[2020-07-31] MEDS: Sertraline 50 MG Tablet 25 MG PO (09:25)
[2020-07-31] MEDS: ALPRAZolam 0.25 MG Tablet PO (09:25)
[2020-07-31] MEDS: dexAMETHasone 4 MG Tablet 6 MG PO (09:25)
[2020-07-31] MEDS: Docusate Sodium 100 MG Capsule PO (09:26)
[2020-07-31] MEDS: Famotidine 20 MG Tablet PO (09:26)
[2020-07-31] MEDS: APIXABAN 2.5 MG TABLET PO (09:26)
[2020-07-31 09:45] VITALS: BP 103/58; PULSE 52; RESP 16; TEMP 36.4; O2SAT 95
[2020-07-31 09:51] VITALS: O2SAT 92
--- NOTE | 2020-07-31 10:56 | PCM.DC ---
Discharge Instructions Diet Discharge Diet: No restrictions Activity Discharge Activity: Return to Normal Activity and - (slowly ease back into your routine.) Dressing / Incision Call your doctor if you observe: Fever of 101 or Higher and Shortness of breath Follow Up Care Test Results: Test results from this visit will be discussed in further detail at your follow-up appointment, if applicable. Discharge Plan Admission Admit Date/Time: 07/24/20 06:57 Attending Provider: Braden Ring Primary Care Provider: Care Physician,No Primary Consulting Providers: Basim Mc ; Ulisses Guzman Instructions Additional Instructions / Restrictions: Self isolate for at least 20 days since symptoms began (07/24/2020) AND at least one day (24 hours) have passed since resolution of fever without the use of fever-reducing agents AND improvement of symptoms (e.g., cough, shortness of breath) When around people in the same room, wear a face mask. Individuals also in the room should wear a mask. If possible, use a different bathroom and bedroom. Perform adequate hand hygiene. Avoid sharing dishes, glasses, etc. Discharge Orders/Prescriptions Prescriptions: New dexamethasone 4 mg Tablet 6 mg PO DAILY 2 Days Qty: 3 RF: 0 cephalexin 500 mg capsule 500 mg PO Q8H 4 Days Qty: 12 RF: 0 Continued ondansetron 4 mg Tablet,Disintegrating 4 mg PO Q6H PRN (Reason: Nausea) RF: 0 sertraline [Zoloft] 25 mg Tablet 25 mg PO DAILY Qty: 30 RF: 0 Discontinued alprazolam [Xanax] 0.25 mg Tablet 0.25 mg PO DAILY RF: 0 Referrals / Follow Up: Care Physician,No Primary [Primary Care Provider] - Disposition Disposition (needs filled in before D/C Order can be placed): Home, self care
--- NOTE | 2020-07-31 11:10 | PCM.DC.SUM ---
Providers Date of Admission: 07/24/20 Primary Care Physician: Sandy Primary Care Phys Consultations 07/24/20 06:52 Consult: Infectious Disease Routine Consulting Provider: Ulisses Guzman Reason for Consult: COVID PNA, hypoxic EMERGENT Consult: No Notified: Yes Date Notified:: 07/24/20 Time Notified: 10:00 Method of Notification: Answering Service Consult: Lubricating Machine Tender / Pulmonary Medicine Routine Consulting Provider: Basim Mc Reason for Consult: COVID PNA, Hypoxic, Severe sepsis EMERGENT Consult: No Notified: Yes Date Notified:: 07/24/20 Time Notified: 06:56 Method of Notification: Text Reason For Visit: SEVERE SEPSIS, COVID PNA, HYPOXIA Diagnosis Discharge Diagnosis (1) Acute respiratory failure with hypoxia: Status: Acute Code(s): J96.01 - Acute respiratory failure with hypoxia (2) COVID-19: Status: Acute Code(s): U07.1 - COVID-19 (3) Pneumonia due to COVID-19 virus: Status: Acute Code(s): U07.1 - COVID-19; J12.82 - Pneumonia due to coronavirus disease 2019 (4) Staphylococcal pneumonia: Status: Acute Code(s): J15.20 - Pneumonia due to staphylococcus, unspecified (5) UTI (urinary tract infection), uncomplicated: Status: Ruled-out Code(s): N39.0 - Urinary tract infection, site not specified Medications at Discharge Home Medications ondansetron 4 mg PO Q6H PRN 07/24/20 cephalexin 500 mg PO Q8H 4 Days #12 cap 07/31/20 dexamethasone 6 mg PO DAILY 2 Days #3 tab 07/31/20 sertraline [Zoloft] 25 mg PO DAILY #30 tab 07/31/20 Hospital Course Operations None Procedures None Summary of Care Provided Minutes Spent on Discharge: 35 Hospital Course: Presents with shortness of breath. Symptoms began about 2 or 2 prior to arrival. Patient was found to have COVID-19 and was started on dexamethasone as well as remdesivir. Patient was still on air Vo. Patient did have sputum culture showed methicillin sensitive staph aureus and was started on cefazolin. There was an area in the left upper lobe that is concerning for infiltrative process that may be pneumonia on top of her Covid. Patient did have dramatic improvement afterwards. Whether that that was related with antibiotics or just overall improvement is not clear but patient did show dramatic improvement after initiation of antibiotics. Patient was seen in consultation by critical care medicine as well as infectious disease. Patient did have positive urine culture for E. coli however the urinalysis was unremarkable. That was true infection but certainly sensitive to cefazolin so cefazolin is primarily being used for the pneumonia but in case patient were to have urinary tract infection could also treat that but I feel that patient does not have a urinary tract infection. Patient was ambulated and satting 92% and overall doing well. Plan is for the patient to go home with her parents. Her both of her parents been vaccinated. Patient is advised to quarantine wall around them despite being vaccinated through the 26 completed 20-day course of quarantine. Patient had 2 more days of dexamethasone and 4 more days of cefazolin. Patient did ask that her sertraline be renewed for a month. Patient said that she has not been able to see her primary care provider at this point time. Patient will be discharged to her parents who will take her down to [place] until she is convalesced then to return home. Physical Exam Const alert General Appearance: cooperative HEENT normocephalic Resp normal respiratory effort, no use of accessory muscles and clear to auscultation bilaterally Cardio regular rate, regular rhythm, S1 normal heart sound and S2 normal heart sound GI normal to inspection, nondistended, normoactive bowel sounds, non-tender and non-distended ABG / Lab / Microbiology Data Result Diagrams: 07/30/20 03:35 07/30/20 03:35 Laboratory: Laboratory Results - last 24 hr 07/30/20 03:35 Diff Path Review Reviewed Microbiology: Microbiology 07/28/20 08:30 Urine Culture - Final Urine, Clean Catch Presumptive E. coli Microbiology 07/28/20 08:30 Urine, Clean Catch Urine Culture - Final Presumptive E. coli 07/24/20 05:50 Blood Culture (Wb) - Anticubital Left Blood Culture - Final No growth in 5 days. 07/25/20 19:20 Sputum, Expectorated/Coughed Gram Stain - Final 07/25/20 19:20 Sputum, Expectorated/Coughed Respiratory Culture - Final Staphylococcus aureus 07/24/20 15:00 Urine, Clean Catch Urine Culture - Final Mixed Gram Positive Organisms 07/24/20 15:00 Urine, Clean Catch Legionella Antigen - Final 07/24/20 15:00 Urine, Clean Catch Streptococcus pneumoniae Antigen (M - Final 07/24/20 07:55 Mucosa - Nose Respiratory Panel (PCR) - Final D/C Instructions Discharge Diet: No restrictions Discharge Activity: Return to Normal Activity and - (slowly ease back into your routine.) Call your doctor if you observe: Fever of 101 or Higher and Shortness of breath Meaningful Use Info Meaningful Use Diagnoses (Choose all that apply): None applicable Discharge Plan Admission Admit Date/Time: 07/24/20 06:57 Attending Provider: Braden Ring Primary Care Provider: Care Physician,No Primary Consulting Providers: Basim Mc ; Ulisses Guzman Instructions Additional Instructions / Restrictions: Self isolate for at least 20 days since symptoms began (07/24/2020) AND at least one day (24 hours) have passed since resolution of fever without the use of fever-reducing agents AND improvement of symptoms (e.g., cough, shortness of breath) When around people in the same room, wear a face mask. Individuals also in the room should wear a mask. If possible, use a different bathroom and bedroom. Perform adequate hand hygiene. Avoid sharing dishes, glasses, etc. Discharge Orders/Prescriptions Prescriptions: New dexamethasone 4 mg Tablet 6 mg PO DAILY 2 Days Qty: 3 RF: 0 cephalexin 500 mg capsule 500 mg PO Q8H 4 Days Qty: 12 RF: 0 Continued ondansetron 4 mg Tablet,Disintegrating 4 mg PO Q6H PRN (Reason: Nausea) RF: 0 sertraline [Zoloft] 25 mg Tablet 25 mg PO DAILY Qty: 30 RF: 0 Discontinued alprazolam [Xanax] 0.25 mg Tablet 0.25 mg PO DAILY RF: 0 Referrals / Follow Up: Care Physician,No Primary [Primary Care Provider] - Disposition Disposition (needs filled in before D/C Order can be placed): Home, self care Visit Charges Inpatient E&M: [id number] Disch Hosp
--- NOTE | 2020-07-31 11:13 | CASEMGMT ---
Pt does not qualify for home oxygen at this time and states no further concerns/needs. Pt states will be going to stay with her parents. Wilber GUY CM
[2020-07-31] MEDS: Acetaminophen 325 MG Tablet 650 MG PO (11:29)
--- NOTE | 2020-08-01 12:07 | CASEMGMT ---
BROOKS VILLAR Discharge Follow-Up Phone Call. [place]: 8 Strata: 2 Discharge Date: 07/31/20 Adm Dx: Severe Sepsis, COVID PNA, hypoxia Call to pt to inquire about how she has been doing since being discharged from the hospital. Pt stated, I've been doing pretty well. 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 She did inquire about getting a work release to maybe be able to go back to work a day earlier than the COVID quarantined dates. BROOKS VILLAR educated that the COVID quarantine dates are what is recommended and that 20 days from start of symptoms is the minimal # of days to quarantine and advised to follow these dates. BROOKS VILLAR advised pt to contact her PCP for further questions/concerns. She states she has not made a f/u appt with her PCP yet, but plans to call soon. She denies having further questions or concerns and thanked BROOKS VILLAR for calling. Keara GARCIA RN, CM
== END 2020-07-31 14:15 | disposition home or self-care (01) | DRG 871 ==
LOC: ED 06:54 → ICU 07:22
PROVIDERS: Internal Medicine Critical Care Medicine; Admitting Provider Family Medicine; Emergency Provider Emergency Medicine
DX: A41.89 Other specified sepsis (principal); U07.1 COVID-19; J12.82 Pneumonia due to coronavirus disease 2019; J96.01 Acute respiratory failure with hypoxia; J15.211 Pneumonia due to Methicillin susceptible Staphylococcus aureus; R65.20 Severe sepsis without septic shock; F41.9 Anxiety disorder, unspecified; E66.9 Obesity, unspecified; E87.6 Hypokalemia; R16.1 Splenomegaly, not elsewhere classified; R73.9 Hyperglycemia, unspecified; R30.0 Dysuria; F32.9 Major depressive disorder, single episode, unspecified; Z68.36 Body mass index [BMI] 36.0-36.9, adult; Z79.899 Other long term (current) drug therapy
CPT/HCPCS: 71045; 71275; 80048; 80053; 81001; 82728; 83605; 83615; 83735; 83880; 84075; 84145; 84484; 85025; 85379; 85610; 85730; 86140; 86850; 86900; 86901; 87040; 87070; 87077; 87086; 87088; 87186; 87205; 87449; 87633; 87641; 93005; 94660; 97802; 99285; J7030; J7050; Q9967; A4216; J2405